=== PATIENT | female | born 1965 | race African-American/Black ===

== ENCOUNTER 2016-08-07 14:02 | Emergency (ER) | payer MEDICARE, OTHER ==
[2016-08-07 14:08] VITALS: TEMP 98.4; BMI 32.8
[2016-08-07] MEDS ORDERED: predniSONE 20 MG TABLET (UD) PO ONE (14:43)
--- NOTE | 2016-08-07 14:43 | PDOC ---
[id number] No Limitations - History of Present Illness Initial Comments: 08/07/16 15:32 The patient is a 51 year old female with significant past medical history of asthma, hypertension, hyperlipidemia, CVA, s/p valve replacement who presents to the emergency department with an asthma exacerbation for the last 2 days. The patient states that she usually takes Symbicort for her asthma, however due to insurance problems the patient was given a smaller dose than normal. The patient states that she has chest discomfort and shortness of breath. 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 Cintron, this morning because he usually refills her medications, however he referred her to the ED. The patient reports any associated cough, runny nose, fevers, or chills. She denies any nausea, vomiting , abdominal pain. The patient denies any recent travels or sick contacts. <Frances Louie - Last Filed: 08/07/16 15:32> <Naty Acevedo - Last Filed: 08/12/16 08:06> - General Chief Complaint: Respiratory Stated Complaint: DIFF BREATHING Time Seen by Provider: 08/07/16 14:40 Past History <Frances Louie - Last Filed: 08/07/16 15:32> - Past Medical History Anemia: Yes Asthma: Yes Cancer: No Cardiac Disorders: Yes CVA: Yes (2007) COPD: No CHF: No Dementia: No Diabetes: No GI Disorders: No Disorders: No HTN: Yes Hypercholesterolemia: Yes Liver Disease: No Seizures: No Thyroid Disease: No - Surgical History Abdominal Surgery: No Appendectomy: No Cardiac Surgery: Yes (VALVE REPLACEMENT) Cholecystectomy: No Lung Surgery: No Neurologic Surgery: No Orthopedic Surgery: No - Psycho/Social/Smoking Cessation Hx Suicidal Ideation: No Smoking History: Current every day smoker Have you smoked in the past 12 months: Yes Number of Cigarettes Smoked Daily: 3 Information on smoking cessation initiated: No 'Breaking Loose' booklet given: 12/16/14 Hx Alcohol Use: No Drug/Substance Use Hx: No Substance Use Type: None <Naty Acevedo - Last Filed: 08/12/16 08:06> - Past Medical History Allergies/Adverse Reactions: Allergies Allergy/AdvReac Type Severity Reaction Status Date / Time No Known Allergies Allergy Verified 08/07/16 14:08 Home Medications: Ambulatory Orders Albuterol Sulfate [Proair Hfa -] 1 - 2 inh PO HS 12/15/14 Amlodipine Besylate [Norvasc -] 5 mg PO PRN PRN 12/15/14 Mv,Ca,Fe,Min/FA/Guarana/Caff [One Daily Tablet] 1 tab PO DAILY 12/15/14 Oxycodone HCl/Acetaminophen [Percocet 5-325 mg Tablet] 1 tab PO Q6H PRN Pregabalin [Lyrica -] 100 mg PO DAILY 12/15/14 Rosuvastatin Calcium [Crestor] 10 mg PO DAILY 12/15/14 Aspirin/Dipyridamole [Aggrenox -] 1 combo PO BID #0 01/02/15 Omeprazole [Prilosec (RX)] 40 mg PO AM #0 capsule 01/02/15 Albuterol 0.083% Nebulizer Krystina [Ventolin 0.083% Nebulizer Soln -] 1 neb NEB Q6H #120 vial 08/07/16 Albuterol Sulfate Inhaler - [Ventolin HFA Inhaler -] 1 - 2 inh PO QID #1 inhaler 08/07/16 Budesonide/Formeterol Fumarate [SYMBICORT 160/4.5mcg -] 1 inh PO BID #1 cannister 08/07/16 Prednisone [Deltasone -] 10 mg PO ASDIR #1 tablet 08/07/16 Review of Systems - Review of Systems Able to Perform ROS?: Yes Comments:: 08/07/16 15:32 GENERAL/CONSTITUTIONAL: No fever or chills. No weakness. HEAD, EYES, EARS, NOSE AND THROAT: No change in vision. No ear pain or discharge. No sore throat. CARDIOVASCULAR: +Shortness of breath. No chest pain . RESPIRATORY: No cough, wheezing, or hemoptysis. GASTROINTESTINAL: No nausea, vomiting, diarrhea or constipation. GENITOURINARY: No dysuria, frequency, or change in urination. MUSCULOSKELETAL: No joint or muscle swelling or pain. No neck or back pain. SKIN: No rash NEUROLOGIC: No headache, vertigo, loss of consciousness, or change in strength/ sensation. ENDOCRINE: No increased thirst. No abnormal weight change. HEMATOLOGIC/LYMPHATIC: No anemia, easy bleeding, or history of blood clots. ALLERGIC/IMMUNOLOGIC: No hives or skin allergy. <Cook,Frances - Last Filed: 08/07/16 15:32> *Physical Exam - Vital Signs Last Vital Signs Temp Pulse Resp BP Pulse Ox 98.4 F 76 20 150/78 98 08/07/16 14:03 08/07/16 14:03 08/07/16 14:03 08/07/16 14:03 08/07/16 14:03 <Frances Louie - Last Filed: 08/07/16 15:32> - Vital Signs Last Vital Signs Temp Pulse Resp BP Pulse Ox 98.4 F 76 20 150/78 98 08/07/16 14:03 08/07/16 14:03 08/07/16 14:03 08/07/16 14:03 08/07/16 14:03 - Physical Exam Comments: GENERAL: Awake, alert, and fully oriented. +Tachypnea HEAD: No signs of trauma EYES: PERRLA, EOMI, sclera anicteric, conjunctiva clear ENT: Auricles normal inspection, hearing grossly normal, nares patent, oropharynx clear without exudates. Moist mucosa NECK: Normal ROM, supple, no lymphadenopathy, JVD, or masses LUNGS: Dec air entry B/L. +Diffuse exp wheezes with prolonged exp phase. Speaking 4 word sentences. HEART: Regular rate and rhythm, normal S1 and S2, no murmurs, rubs or gallops ABDOMEN: Soft, nontender, normoactive bowel sounds. No guarding, no rebound. No masses EXTREMITIES: Normal range of motion, no edema. No clubbing or cyanosis. No cords, erythema, or tenderness NEUROLOGICAL: Cranial nerves II through XII grossly intact. Normal speech, normal gait SKIN: Warm, Dry, normal turgor, no rashes or lesions noted. <Naty Acevedo - Last Filed: 08/12/16 08:06> ED Treatment Course - Medications Given in the ED: ED Medications Discontinued Medications Generic Name Dose Route Start Last Admin Trade Name Freq PRN Reason Stop Dose Admin Albuterol/Ipratropium 1 amp 08/07/16 14:45 08/07/16 15:15 Duoneb - NEB 08/07/16 15:31 1 amp Q15M CHANDLER Administration Prednisone 60 mg 08/07/16 14:43 08/07/16 14:55 Deltasone - PO 08/07/16 14:44 60 mg ONCE ONE Administration <Frances Louie - Last Filed: 08/07/16 15:32> Medical Decision Making - Medical Decision Making Symptoms likely due to having suboptimal dosing of symbicort. I started her on prednisone and nebs. Patient improved, stable for DC home. <Naty Acevedo - Last Filed: 08/12/16 08:06> *DC/Admit/Observation/Transfer - Attestations Scribe Attestion: 08/07/16 15:32 Documentation prepared by Frances Louie, acting as emergency medicine medical director for Naty Acevedo MD. <Frances Louie - Last Filed: 08/07/16 15:32> - Discharge Dispostion Admit: No <Naty Acevedo - Last Filed: 08/12/16 08:06> Diagnosis at time of Disposition: Asthma exacerbation - Discharge Dispostion Disposition: HOME Condition at time of disposition: Stable - Prescriptions Prescriptions: Prednisone [Deltasone -] 10 mg PO ASDIR #1 tablet Budesonide/Formeterol Fumarate [SYMBICORT 160/4.5mcg -] 1 inh PO BID #1 cannister Albuterol 0.083% Nebulizer Krystina [Ventolin 0.083% Nebulizer Soln -] 1 neb NEB Q6H #120 vial Albuterol Sulfate Inhaler - [Ventolin HFA Inhaler -] 1 - 2 inh PO QID #1 inhaler - Referrals Referrals: Percy Layne MD [Primary Care Provider] - - Patient Instructions Printed Discharge Instructions: DI for Asthma -- Adult
[2016-08-07] MEDS ORDERED: ALBUTEROL SO4 2.5/IPRATROPIUM 0.5 INH SOL 3 ML VIAL.NEB. NEB ONE ×2 (14:44→16:37)
[2016-08-07] MEDS ORDERED: predniSONE 20 MG TABLET (UD) ONE (14:45)
[2016-08-07] MEDS: ALBUTEROL SO4 2.5/IPRATROPIUM 0.5 INH SOL 3 ML VIAL.NEB. NEB SCH ×3 (14:55→15:35)
[2016-08-07 17:15] VITALS: BP 138/74; PULSE 80
== END 2016-08-07 17:13 | disposition home or self-care (01) ==
LOC: JER 14:02
PROC: 3E0F7GC Introduction of Other Therapeutic Substance into Respiratory Tract, Via Natural or Artificial Opening (ICD-10-PCS; principal; 2016-08-07)
DX: J45.901 Unspecified asthma with (acute) exacerbation (principal); I10 Essential (primary) hypertension; E78.5 Hyperlipidemia, unspecified; Z86.73 Personal history of transient ischemic attack (TIA), and cerebral infarction without residual deficits; Z95.2 Presence of prosthetic heart valve; D64.9 Anemia, unspecified; F17.210 Nicotine dependence, cigarettes, uncomplicated
CPT/HCPCS: 71020-TC; 94640; 99283-25

== ENCOUNTER 2016-11-23 21:31 | Inpatient (IN) | payer MEDICARE, OTHER ==
[2016-11-23 21:44] VITALS: BMI 32.6
--- NOTE | 2016-11-23 22:01 | PDOC ---
History of Present Illness - General History Source: Patient Exam Limitations: No Limitations - History of Present Illness Initial Comments: 11/23/16 23:37 Patient is a 51 year old female with a significant past medical history of asthma, hypertension, hyperlipidemia, CVA and heart valve replacement who presents to the ED with complaint of wheezing and SOB since 4 days ago. Patient states that her last she developed SOB and wheezing on Friday and used her treatments and her symptoms resolved on . Patient notes that her symptoms came back yesterday. She reports dry cough. She states that she was seen by her peer educator and had and ECHO on friday. She denies any fever or chills. She denies lower extremity swelling. She denies chest pain. <Diana Funez - Last Filed: 11/23/16 23:37> - General History Source: Patient Exam Limitations: No Limitations <Claudia Lazar - Last Filed: 11/25/16 07:43> - General Chief Complaint: Asthma Stated Complaint: DIFFICULTY BREATHING Time Seen by Provider: 11/23/16 21:56 Past History <Diana Funez - Last Filed: 11/23/16 23:37> - Past Medical History Anemia: Yes Asthma: Yes Cancer: No Cardiac Disorders: Yes CVA: Yes (2007) COPD: No CHF: No Dementia: No Diabetes: No GI Disorders: No Disorders: No HTN: Yes Hypercholesterolemia: Yes Liver Disease: No Seizures: No Thyroid Disease: No - Surgical History Abdominal Surgery: No Appendectomy: No Cardiac Surgery: Yes (VALVE REPLACEMENT) Cholecystectomy: No Lung Surgery: No Neurologic Surgery: No Orthopedic Surgery: No - Psycho/Social/Smoking Cessation Hx Suicidal Ideation: No Smoking History: Current every day smoker Have you smoked in the past 12 months: Yes Number of Cigarettes Smoked Daily: 5 Information on smoking cessation initiated: No 'Breaking Loose' booklet given: 12/16/14 Hx Alcohol Use: No Drug/Substance Use Hx: No Substance Use Type: None <Claudia Lazar - Last Filed: 11/25/16 07:43> - Past Medical History Allergies/Adverse Reactions: Allergies Allergy/AdvReac Type Severity Reaction Status Date / Time No Known Allergies Allergy Verified 11/23/16 21:38 Home Medications: Ambulatory Orders Albuterol Sulfate [Proair Hfa -] 1 - 2 inh PO HS 12/15/14 Amlodipine Besylate [Norvasc -] 5 mg PO PRN PRN 12/15/14 Mv,Ca,Fe,Min/FA/Guarana/Caff [One Daily Tablet] 1 tab PO DAILY 12/15/14 Oxycodone HCl/Acetaminophen [Percocet 5-325 mg Tablet] 1 tab PO Q6H PRN Pregabalin [Lyrica -] 100 mg PO DAILY 12/15/14 Rosuvastatin Calcium [Crestor] 10 mg PO DAILY 12/15/14 Aspirin/Dipyridamole [Aggrenox -] 1 combo PO BID #0 01/02/15 Albuterol 0.083% Nebulizer Krystina [Ventolin 0.083% Nebulizer Soln -] 1 neb NEB Q6H #120 vial 08/07/16 Albuterol Sulfate Inhaler - [Ventolin HFA Inhaler -] 1 - 2 inh PO QID #1 inhaler 08/07/16 Budesonide/Formeterol Fumarate [SYMBICORT 160/4.5mcg -] 1 inh PO BID #1 cannister 08/07/16 Prednisone [Deltasone -] 10 mg PO ASDIR #1 tablet 08/07/16 Review of Systems - Review of Systems Able to Perform ROS?: Yes Comments:: 11/23/16 23:37 GENERAL/CONSTITUTIONAL: No: fever, chills, weakness, loss of appetite. HEAD, EYES, EARS, NOSE AND THROAT: No: change in vision, ear pain, discharge, sore throat, throat swelling. CARDIOVASCULAR: No: chest pain, lightheadedness, palpitations, syncope RESPIRATORY: +cough, SOB, wheezing No: hemoptysis, stridor. GASTROINTESTINAL: No: nausea, vomiting, abdominal cramping, diarrhea, rectal bleeding, constipation. GENITOURINARY: No: dysuria, hematuria, frequency, urgency, flank pain. MUSCULOSKELETAL: No: back pain, neck pain, joint pain, muscle swelling or pain SKIN: No: lesions, pallor, rash or easy bruising. NEUROLOGIC: No: headache, vertigo, paresthesias, weakness ENDOCRINE: No: unexplained weight gain or loss HEMATOLOGIC/LYMPHATIC: No: anemia, easy bleeding, swelling nodes <Jimmie Funeza - Last Filed: 11/23/16 23:37> *Physical Exam - Vital Signs Last Vital Signs Temp Pulse Resp BP Pulse Ox 97.8 F 86 20 116/60 100 11/23/16 21:35 11/23/16 21:35 11/23/16 21:35 11/23/16 21:35 11/23/16 22:45 - Physical Exam Comments: 11/23/16 23:37 GENERAL: The patient is in no acute distress. HEAD: Normal with no signs of trauma. EYES: PERRLA, EOMI, sclera anicteric, conjunctiva clear. ENT: Ears normal, nares patent, oropharynx clear without exudates. Moist mucous membranes. NECK: Normal range of motion, supple without lymphadenopathy, JVD, or masses. LUNGS: +Wheezes throughout. Breath sounds equal, no crackles. HEART:Regular rate and rhythm, normal S1 and S2 without murmur, rub or gallop. ABDOMEN: Soft, nontender, normoactive bowel sounds. No guarding, no rebound. EXTREMITIES: Normal range of motion, no edema. No clubbing or cyanosis. No erythema, or tenderness. NEUROLOGICAL: Cranial nerves II through XII grossly intact. Normal speech. No focal neurological deficits. MUSCULOSKELETAL: Back nontender to palpation, no CVA tenderness SKIN: Warm, Dry, normal turgor, no rashes or lesions noted. <Diana Funez - Last Filed: 11/23/16 23:37> - Vital Signs Last Vital Signs Temp Pulse Resp BP Pulse Ox 97.8 F 86 20 116/60 93 L 11/23/16 21:35 11/23/16 21:35 11/23/16 21:35 11/23/16 21:35 11/23/16 21:35 <Claudia Lazar - Last Filed: 11/25/16 07:43> ED Treatment Course - Medications Given in the ED: ED Medications Discontinued Medications Generic Name Dose Route Start Last Admin Trade Name Freq PRN Reason Stop Dose Admin Albuterol Sulfate 1 amp 11/23/16 22:16 11/23/16 22:36 Ventolin 0.083% Nebulizer Soln - NEB 11/23/16 22:17 1 amp ONCE ONE Administration Albuterol/Ipratropium 1 amp 11/23/16 22:16 11/23/16 22:36 Duoneb - NEB 11/23/16 22:17 1 amp ONCE ONE Administration Methylprednisolone Sodium Succinate 125 mg 11/23/16 22:16 11/23/16 22:36 Solu-Medrol - IVPB 11/23/16 22:17 Not Given ONCE ONE Prednisone 60 mg 11/23/16 22:26 11/23/16 22:36 Deltasone - PO 11/23/16 22:27 60 mg ONCE ONE Administration <Diana Funez - Last Filed: 11/23/16 23:37> - LABORATORY CBC & Chemistry Diagram: 11/24/16 12:00 11/24/16 12:00 <Claudia Lazar - Last Filed: 11/25/16 07:43> Medical Decision Making - Medical Decision Making 11/23/16 23:38 Documentation prepared by GIU Cain, acting as medical records coder for Claudia Lazar MD. <Diana Funez - Last Filed: 11/23/16 23:37> - Medical Decision Making 11/23/16 22:00 A portion of this note was documented by scribe services under my direction. I have reviewed the details of the note, within reason, and agree with the documentation with the following case summary and management plan written by me. Nursing documentation reviewed and incorporated into medical decision making This is a 51 yo F with a history of HTN, HLD, DM, h/o CVA (with prior Left upper extremity hemiparesis, now improved), s/p CABG, h/o Asthma Pt history slightly confusing She states that 4 days ago, she developed shortness of breath She took her albuterol treatments but states that she took it 4 days ago and then the following day This improved her symptoms Pt states beginning yesterday, she noted chest tightness and wheezing She presents to the ER because her daughter thought she sounded like a freight train Pt is visualized in her room breathing with no difficulties When staff present, she breathes heavily On examination: Exp wheezing in all lung novak RRR Pt is tearful when approached with IV 11/23/16 22:27 Pt re assessed She is having an anxiety attack when the nurse approached her with the IV needle Pt shaking I have explained that I would like to assess her further, however if she is refusing blood tests, We can not force her Pt given prednisone 60mg po 11/23/16 22:55 CXR: possible right infiltrate vs. effusion Will have to do labs 11/24/16 00:53 Laboratory Tests 11/24/16 00:01 WBC 6.4 Hgb 12.7 Hct 39.5 Plt Count 155 11/24/16 01:21 Laboratory Tests 11/24/16 00:01 Sodium 140 Potassium 4.5 Chloride 106 Carbon Dioxide 22 BUN 12 Creatinine 0.9 Random Glucose 107 H Troponin I < 0.02 B-Natriuretic Peptide 224.53 H Will discharge to home Return to the ER for any new symptoms, Follow up with your pmd in 2-3 days 11/24/16 01:23 Clinical impression: bronchitis, early pneumonia, COPD exacerbation After discussion about being discharged, pt began to ?wheeze Will admit to Dr Miles <Claudia Lazar - Last Filed: 11/25/16 07:43> *DC/Admit/Observation/Transfer - Attestations Scribe Attestion: 11/23/16 23:38 Documentation prepared by GUI Cain, acting as medical records coder for Claudia Lazar MD. <Diana Funez - Last Filed: 11/23/16 23:37> - Discharge Dispostion Admit: Yes <Claudia Lazar - Last Filed: 11/25/16 07:43> Diagnosis at time of Disposition: COPD exacerbation Pneumonia Qualifiers: Pneumonia type: due to unspecified organism Laterality: right Lung location: middle lobe of lung Qualified Code(s): J18.1 - Lobar pneumonia, unspecified organism - Referrals - Patient Instructions
[2016-11-23] MEDS ORDERED: ALBUTEROL SO4 2.5/IPRATROPIUM 0.5 INH SOL 3 ML VIAL.NEB. NEB ONE (22:16)
[2016-11-23] MEDS ORDERED: ALBUTEROL SO4 0.083% IH SOL 2.5 MG/3 ML VIAL.NEB. NEB ONE ×2 (22:16→22:20)
[2016-11-23] MEDS ORDERED: methylPREDNISolone NA SUCC 125 MG/2 ML VIAL IVPB ONE (22:16)
[2016-11-23] MEDS ORDERED: methylPREDNISolone NA SUCC 125 MG/2 ML VIAL ONE (22:20)
[2016-11-23] MEDS ORDERED: predniSONE 20 MG TABLET (UD) PO ONE (22:26)
[2016-11-23] MEDS ORDERED: predniSONE 20 MG TABLET (UD) ONE (22:28)
[2016-11-23] MEDS ORDERED: AZITHROMYCIN IVPB 500 MG in DEXTROSE 5%-WATER - 250 ML IVPB ONE (23:58)
[2016-11-23] MEDS ORDERED: CEFTRIAXONE 1 GM in DEXTROSE 5%-WATER - 50 ML IVPB ONE (23:58)
[2016-11-24] MEDS ORDERED: AZITHROMYCIN IVPB 250 ML IVPB ONE (00:26)
[2016-11-24] MEDS ORDERED: CEFTRIAXONE 50 ML ONE (00:27)
[2016-11-24 00:29] LABS: BASOPHIL 1.1 % (0-2.0); EOSINOPHIL 1.1 % (0-4.5); MCHC 32.2 g/dl (32.0-36.0); MEAN CELL VOLUME 86.8 fl (80-96); MEAN PLT VOLUME 9.5 fl (7.5-11.1); NEUTROPHILS 56.6 % (42.8-82.8); PLATELET COUNT 155 K/MM3 (134-434); RDW 15.2 % (11.6-15.6); WHITE BLOOD COUNT 6.4 K/mm3 (4.0-10.0)
[2016-11-24 00:58] LABS: ALBUMIN 3.8 g/dl (3.4-5.0); ANION GAP 12 (8-16); BILIRUBIN,TOTAL 0.3 mg/dL (0.2-1.0); CALCIUM 8.7 mg/dL (8.5-10.1); CO2 22 mmol/L (21-32); CREATININE 0.9 mg/dL (0.55-1.02); GLUCOSE,RANDOM 107 mg/dL (74-106); SGPT/ALT 31 U/L (12-78); TOT PROT 7.8 g/dl (6.4-8.2)
[2016-11-24 01:00] LABS: ALK PHOS 83 U/L (45-117); TROPONIN I < 0.02 ng/ml (0.00-0.05)
[2016-11-24 01:01] LABS: SGOT/AST 26 U/L (15-37)
[2016-11-24] MEDS ORDERED: ALBUTEROL SO4 2.5/IPRATROPIUM 0.5 INH SOL 3 ML VIAL.NEB. NEB ONE ×2 (01:36→01:39)
[2016-11-24] MEDS ORDERED: OXYCODONE/APAP 5/325MG COMBO TABLET PO PRN (03:46)
[2016-11-24] MEDS ORDERED: ALBUTEROL SO4 2.5/IPRATROPIUM 0.5 INH SOL 3 ML VIAL.NEB. NEB PRN (03:49)
[2016-11-24] MEDS ORDERED: oxyCODONE HCL 5 MG TABLET PO PRN (04:04)
[2016-11-24] MEDS ORDERED: ACETAMINOPHEN 325 MG TABLET (FP) PO PRN (04:04)
[2016-11-24] MEDS ORDERED: PT OWN MED DRAWER 7, Y5N ONE ×2 (09:37→21:05)
[2016-11-24] MEDS: methylPREDNISolone NA SUCC 40 MG/1 ML VIAL IVPB SCH ×2 (09:47→17:35)
[2016-11-24] MEDS: HEPARIN NA (PORCINE) 5,000 UNITS/ML 1ML VIAL SQ SCH ×2 (09:47→22:45)
[2016-11-24] MEDS ORDERED: AZITHROMYCIN IVPB 250 MG in DEXTROSE 5%-WATER - 250 ML IVPB SCH (10:00)
[2016-11-24] MEDS ORDERED: BUDESONIDE/FORMETEROL FUMARATE 160/4.5 mcg INHALER IH SCH (10:00)
[2016-11-24] MEDS ORDERED: PREGABALIN 100 MG CAPSULE PO SCH (10:00)
[2016-11-24] MEDS ORDERED: CEFTRIAXONE 50 ML IVPB SCH (10:00)
--- NOTE | 2016-11-24 11:12 | CON.PULM ---
Consult Consult Specialty:: PULM/CCM Referred by:: CARSON Reason for Consultation:: SOB - History of Present Illness Chief Complaint: SOB History of Present Illness: 51 F, active, daily smoker, (?) asthma-likely COPD, hypertension, hyperlipidemia , CVA, and heart valve replacement. Admitted via the ER after she developed SOB and wheezing while smoking a cigarette. She does report some mild progressive symptoms of CARTER and wheezing since . No travel history or sick contacts. No hemoptysis. She does snore and does have a risk factors for OSAS. She reports some mild pedal edema over the past few days. 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 No: Previously Intubated, Pulmonary Embolus , Pulmonary Fibrosis ...LMP: 09/24/07 ...: No - Alcohol/Substance Use Hx Alcohol Use: No - Smoking History Smoking history: Current every day smoker Have you smoked in the past 12 months: Yes Aproximately how many cigarettes per day: 5 Home Medications - Allergies Allergies/Adverse Reactions: Allergies Allergy/AdvReac Type Severity Reaction Status Date / Time No Known Allergies Allergy Verified 11/23/16 21:38 - Home Medications Home Medications: Ambulatory Orders Albuterol Sulfate [Proair Hfa -] 1 - 2 inh PO HS 12/15/14 Amlodipine Besylate [Norvasc -] 5 mg PO PRN PRN 12/15/14 Mv,Ca,Fe,Min/FA/Guarana/Caff [One Daily Tablet] 1 tab PO DAILY 12/15/14 Oxycodone HCl/Acetaminophen [Percocet 5-325 mg Tablet] 1 tab PO Q6H PRN Pregabalin [Lyrica -] 100 mg PO DAILY 12/15/14 Rosuvastatin Calcium [Crestor] 10 mg PO DAILY 12/15/14 Aspirin/Dipyridamole [Aggrenox -] 1 combo PO BID #0 01/02/15 Albuterol 0.083% Nebulizer Krystina [Ventolin 0.083% Nebulizer Soln -] 1 neb NEB Q6H #120 vial 08/07/16 Albuterol Sulfate Inhaler - [Ventolin HFA Inhaler -] 1 - 2 inh PO QID #1 inhaler 08/07/16 Budesonide/Formeterol Fumarate [SYMBICORT 160/4.5mcg -] 1 inh PO BID #1 cannister 08/07/16 Prednisone [Deltasone -] 10 mg PO ASDIR #1 tablet 08/07/16 Review of Systems - Review of Systems Constitutional: reports: Malaise, Weakness. denies: Chills, Fever, Loss of Appetite, Night Sweats Eyes: reports: No Symptoms HENT: reports: No Symptoms Neck: reports: No Symptoms Cardiovascular: reports: Edema, Shortness of Breath. denies: Chest Pain, Palpitations Respiratory: reports: Cough, Snoring, SOB, SOB on Exertion, Wheezing. denies: Hemoptysis Gastrointestinal: reports: No Symptoms Genitourinary: reports: No Symptoms Breasts: reports: No Symptoms Reported Musculoskeletal: reports: No Symptoms Integumentary: reports: No Symptoms Neurological: reports: No Symptoms Endocrine: reports: No Symptoms Hematology/Lymphatic: reports: No Symptoms Psychiatric: reports: No Symptoms Physical Exam Vital Sings: Vital Signs Temperature 98.6 F 11/24/16 09:14 Pulse Rate 99 H 11/24/16 09:14 Respiratory Rate 19 11/24/16 09:14 Blood Pressure 119/50 11/24/16 09:14 O2 Sat by Pulse Oximetry (%) 96 11/24/16 04:30 Constitutional: Yes: No Distress, Obese Eyes: Yes: Conjunctiva Clear, EOM Intact HENT: Yes: Atraumatic, Pharyngeal Erythema Neck: Yes: Supple, Trachea Midline Cardiovascular: Yes: Regular Rate and Rhythm Respiratory: Yes: Cough, Diminished, On Nasal O2, Rhonchi, Wheezes. No: Accessory Muscle Use, Stridor, Tachypnea ...Inspection: Yes: WNL ...Clubbing: No Gastrointestinal: Yes: Normal Bowel Sounds, Soft Renal/: Yes: WNL Musculoskeletal: Yes: WNL Extremities: Yes: WNL Edema: Yes Edema: LLE: Trace, RLE: Trace Peripheral Pulses WNL: Yes Integumentary: Yes: WNL Neurological: Yes: WNL, Alert, Oriented ...Motor Strength: WNL Psychiatric: Yes: WNL, Alert, Oriented Imaging - Results Chest X-ray: Report Reviewed, Image Reviewed Problem List - Problems (1) COPD exacerbation Code(s): J44.1 - CHRONIC OBSTRUCTIVE PULMONARY DISEASE W (ACUTE) EXACERBATION (2) Asthma exacerbation Code(s): J45.901 - UNSPECIFIED ASTHMA WITH (ACUTE) EXACERBATION (3) Hypertension Code(s): I10 - ESSENTIAL (PRIMARY) HYPERTENSION (4) Hyperlipidemia Code(s): E78.5 - HYPERLIPIDEMIA, UNSPECIFIED (5) Obesity Code(s): E66.9 - OBESITY, UNSPECIFIED (6) Pulmonary vascular congestion Code(s): R09.89 - OTH SYMPTOMS AND SIGNS INVOLVING THE CIRC AND RESP SYSTEMS Assessment/Plan IV Medrol Trial of Lasix BD TX No smoking counseled PFTs once stable Monitor off ABX for now I have a high suspicion for Sleep Apnea -> needs formal workup after discharge VTE prophylaxis Will follow Thank you. Dr Teresa
[2016-11-24] MEDS ORDERED: FUROSEMIDE 40 MG/4 ML INJECTABLE VIAL IVPB ONE (11:16)
[2016-11-24] MEDS: ASPIRIN/DIPYRIDAMOLE 25 MG/200 MG CAPSULE (FP) PO SCH ×2 (11:53→21:25)
[2016-11-24] MEDS: BUDESONIDE/FORMETEROL FUMARATE 160/4.5 mcg INHALER IH SCH ×2 (11:54→21:26)
[2016-11-24 12:30] LABS: BASOPHIL 0.2 % (0-2.0); MCH 28.1 pg (25.7-33.7); MCHC 32.3 g/dl (32.0-36.0); MEAN CELL VOLUME 87.1 fl (80-96); MEAN PLT VOLUME 9.8 fl (7.5-11.1); NEUTROPHILS 83.1 % (42.8-82.8); PLATELET COUNT 152 K/MM3 (134-434); RDW 15.3 % (11.6-15.6); WHITE BLOOD COUNT 6.2 K/mm3 (4.0-10.0)
[2016-11-24 13:03] LABS: ALBUMIN 3.8 g/dl (3.4-5.0); ANION GAP 12 (8-16); CALCIUM 9.4 mg/dL (8.5-10.1); CO2 24 mmol/L (21-32); CREATININE 0.8 mg/dL (0.55-1.02); GLUCOSE,RANDOM 113 mg/dL (74-106); SGOT/AST 21 U/L (15-37); SGPT/ALT 28 U/L (12-78)
[2016-11-24 13:04] LABS: ALK PHOS 85 U/L (45-117); BILIRUBIN,TOTAL 0.5 mg/dL (0.2-1.0); TOT PROT 7.7 g/dl (6.4-8.2)
[2016-11-24] MEDS: PREGABALIN 50 MG CAPSULE PO SCH (13:41)
[2016-11-24] MEDS: ALBUTEROL SO4 0.083% IH SOL 2.5 MG/3 ML VIAL.NEB. NEB SCH ×2 (14:10→21:44)
--- NOTE | 2016-11-24 18:45 | HP ---
Admitting History and Physical - Admission Chief Complaint: Dyspnea History of Present Illness: Pt is a 51 y/o morbidly obese female w/ PMH significant for HTN, asthma HLD, CVA and valve replacement. Pt presented to the ER w/ a 4 day h/o wheezing, dyspnea and dry nonproductive cough. Pt states that at change of seasons she usually gets a flare of her asthma. Pt deneis any fever/chills/chest pain or palpitations. In the ER pt was afebrile w/ a normal WBC and cxr showed congestion w/ a BNP of >200. 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 No: Previously Intubated, Pulmonary Embolus , Pulmonary Fibrosis ...LMP: 09/24/07 ...: No - Past Surgical History Additional Past Surgical History: Valve replacement - Smoking History Smoking history: Current every day smoker Have you smoked in the past 12 months: Yes Aproximately how many cigarettes per day: 5 - Alcohol/Substance Use Hx Alcohol Use: No Home Medications - Allergies Allergies/Adverse Reactions: Allergies Allergy/AdvReac Type Severity Reaction Status Date / Time No Known Allergies Allergy Verified 11/23/16 21:38 - Home Medications Home Medications: Ambulatory Orders Albuterol Sulfate [Proair Hfa -] 1 - 2 inh PO HS 12/15/14 Amlodipine Besylate [Norvasc -] 5 mg PO PRN PRN 12/15/14 Mv,Ca,Fe,Min/FA/Guarana/Caff [One Daily Tablet] 1 tab PO DAILY 12/15/14 Oxycodone HCl/Acetaminophen [Percocet 5-325 mg Tablet] 1 tab PO Q6H PRN Pregabalin [Lyrica -] 100 mg PO DAILY 12/15/14 Rosuvastatin Calcium [Crestor] 10 mg PO DAILY 12/15/14 Aspirin/Dipyridamole [Aggrenox -] 1 combo PO BID #0 01/02/15 Albuterol 0.083% Nebulizer Krystina [Ventolin 0.083% Nebulizer Soln -] 1 neb NEB Q6H #120 vial 08/07/16 Albuterol Sulfate Inhaler - [Ventolin HFA Inhaler -] 1 - 2 inh PO QID #1 inhaler 08/07/16 Budesonide/Formeterol Fumarate [SYMBICORT 160/4.5mcg -] 1 inh PO BID #1 cannister 08/07/16 Prednisone [Deltasone -] 10 mg PO ASDIR #1 tablet 08/07/16 Family Disease History - Family Disease History Family History: Unremarkable Review of Systems - Review of Systems Constitutional: reports: Loss of Appetite, Weakness Eyes: reports: No Symptoms HENT: reports: No Symptoms Neck: reports: No Symptoms Cardiovascular: reports: Shortness of Breath Respiratory: reports: Cough, SOB, Wheezing Gastrointestinal: reports: No Symptoms Genitourinary: reports: No Symptoms Physical Examination Vital Signs: Vital Signs Temperature 98.6 F 11/24/16 14:37 Pulse Rate 94 H 11/24/16 14:37 Respiratory Rate 18 11/24/16 14:37 Blood Pressure 142/76 11/24/16 14:37 O2 Sat by Pulse Oximetry (%) 96 11/24/16 09:10 Constitutional: Yes: Well Nourished Eyes: Yes: WNL HENT: Yes: WNL Neck: Yes: Supple Cardiovascular: Yes: WNL, Regular Rate and Rhythm Respiratory: Yes: Wheezes Gastrointestinal: Yes: WNL, Normal Bowel Sounds, Soft, Abdomen, Obese Musculoskeletal: Yes: WNL Extremities: Yes: WNL Edema: No Neurological: Yes: WNL, Alert, Oriented ...Motor Strength: WNL Labs: CBC, BMP 11/24/16 12:00 11/24/16 12:00 Problem List - Problems (1) Dyspnea Assessment/Plan: Due to exacerbation asthma Pulmonary/cardio consult Cont iv solumedrol/nebulizers Will IV zithro/ceftriaxone Check echo Sleep study as outpt to r/o HOWARD Code(s): R06.00 - DYSPNEA, UNSPECIFIED (2) Hypertension Assessment/Plan: BP stable Cont norvasc Code(s): I10 - ESSENTIAL (PRIMARY) HYPERTENSION (3) CVA (cerebral vascular accident) Assessment/Plan: Cont aggrenox Code(s): I63.9 - CEREBRAL INFARCTION, UNSPECIFIED (4) Hyperlipidemia Assessment/Plan: Cont crestor Code(s): E78.5 - HYPERLIPIDEMIA, UNSPECIFIED (5) Obesity Code(s): E66.9 - OBESITY, UNSPECIFIED
[2016-11-24] MEDS: ROSUVASTATIN CA 10 MG TABLET (FP) PO SCH (21:25)
[2016-11-25] MEDS: methylPREDNISolone NA SUCC 40 MG/1 ML VIAL IVPB SCH ×3 (02:19→18:06)
[2016-11-25] MEDS: ALBUTEROL SO4 0.083% IH SOL 2.5 MG/3 ML VIAL.NEB. NEB SCH ×3 (06:49→22:00)
[2016-11-25] MEDS ORDERED: PT OWN MED DRAWER 7, Y5N ONE ×2 (10:25→18:35)
[2016-11-25] MEDS: ASPIRIN/DIPYRIDAMOLE 25 MG/200 MG CAPSULE (FP) PO SCH ×2 (10:28→21:11)
[2016-11-25] MEDS: HEPARIN NA (PORCINE) 5,000 UNITS/ML 1ML VIAL SQ SCH ×3 (10:29→21:11)
[2016-11-25] MEDS: PREGABALIN 50 MG CAPSULE PO SCH (10:30)
[2016-11-25] MEDS: amLODIPine BESYLATE 5 MG TABLET (FP) PO SCH (10:31)
[2016-11-25] MEDS: BUDESONIDE/FORMETEROL FUMARATE 160/4.5 mcg INHALER IH SCH ×2 (10:32→21:10)
--- NOTE | 2016-11-25 12:19 | CON.CARD ---
Consult Consult Specialty:: Cardiology Referred by:: Dr. Miles Reason for Consultation:: SOB - History of Present Illness Chief Complaint: SOB/wheezing History of Present Illness: 51 year old woman with a history of a bio-MVR for endocarditis, prior CVA, known moderate LV systolic dysfunction, Asthma/COPD, continued smoking, admitted with sob and wheezing. Pt. seen and examined today in [place]. she states that her wheezing started last friday and initially improved with home nebulizers but became progressively worse over the week as she continued to smoke. She was in the ER with a friend over the weekend and noted by staff to be loudly wheezing thus she was advised to stay for treatment. Today she states she is feeling much better. Denies chest pain. does report mild LLE edema that has resolved over weekend. no palpitations, pnd, orthopnea. 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 Cardio/Vascular: Yes: HTN, Hyperlipdemia, Other (bio MVR for endocarditis) Pulmonary: Yes: Asthma, Bronchitis, COPD ...LMP: 09/24/07 ...: No - Alcohol/Substance Use Hx Alcohol Use: No - Smoking History Smoking history: Current every day smoker Have you smoked in the past 12 months: Yes Aproximately how many cigarettes per day: 5 - Social History ADL: Independent History of Recent Travel: No Home Medications - Allergies Allergies/Adverse Reactions: Allergies Allergy/AdvReac Type Severity Reaction Status Date / Time No Known Allergies Allergy Verified 11/23/16 21:38 - Home Medications Home Medications: Ambulatory Orders Albuterol Sulfate [Proair Hfa -] 1 - 2 inh PO HS 12/15/14 Amlodipine Besylate [Norvasc -] 5 mg PO PRN PRN 12/15/14 Mv,Ca,Fe,Min/FA/Guarana/Caff [One Daily Tablet] 1 tab PO DAILY 12/15/14 Oxycodone HCl/Acetaminophen [Percocet 5-325 mg Tablet] 1 tab PO Q6H PRN Pregabalin [Lyrica -] 100 mg PO DAILY 12/15/14 Rosuvastatin Calcium [Crestor] 10 mg PO DAILY 12/15/14 Aspirin/Dipyridamole [Aggrenox -] 1 combo PO BID #0 01/02/15 Albuterol 0.083% Nebulizer Krystina [Ventolin 0.083% Nebulizer Soln -] 1 neb NEB Q6H #120 vial 08/07/16 Albuterol Sulfate Inhaler - [Ventolin HFA Inhaler -] 1 - 2 inh PO QID #1 inhaler 08/07/16 Budesonide/Formeterol Fumarate [SYMBICORT 160/4.5mcg -] 1 inh PO BID #1 cannister 08/07/16 Prednisone [Deltasone -] 10 mg PO ASDIR #1 tablet 08/07/16 Family Disease History - Family Disease History Family History: Denies Review of Systems - Review of Systems Constitutional: denies: No Symptoms, Chills, Diaphoresis, Fever, Lethargy, Loss of Appetite, Malaise, Night Sweats, Unintentional Wgt. Loss, Weakness, Other Eyes: denies: No Symptoms, Blind Spots, Blurred Vision, Double Vision, Eye Pain , Floaters, Photophobia, Recent Change in Vision, Other HENT: denies: No Symptoms, Difficult Swallowing, Ear Discharge, Ear Pain, Epistaxis, Gingival Bleeding, Hearing Loss, Mouth Swelling, Nasal Congestion, Ocular Prosthesis, Throat Pain, Toothache, Ringing in Ears, Other Neck: denies: No Symptoms, Decreased ROM, Lumps, Pain on Movement, Stiffness, Swollen Glands, Tenderness, Other Cardiovascular: reports: Edema. denies: No Symptoms, Chest Pain, Palpitations, Shortness of Breath, Other Respiratory: reports: Cough, Exercise Intolerance, SOB, SOB on Exertion, Wheezing. denies: No Symptoms, Hemoptysis, Orthopnea, PND, Snoring, Other Gastrointestinal: denies: No Symptoms, Abdominal Pain, Bloating, Constipation, Diarrhea, Dysphagia, Indigestion, Melena, Nausea, Rectal Bleeding, Vomiting, Vomiting Blood, Other Genitourinary: denies: No Symptoms, Burning, Discharge, Dysuria, Flank Pain, Frequency, Hematuria, Incontinence, Lesions, Menses, Pain, Testicular Mass, Testicular Pain, Testicular Swelling, Urgency, Vaginal Bleeding, Other Breasts: denies: No Symptoms Reported, See HPI, Breast Implants, Discharge from Nipple, Lumps, Pain, Skin Changes, Other Musculoskeletal: denies: No Symptoms, Back Pain, Crepitus, Decreased ROM, Extremity Pain, Joint Pain, Joint Swelling, Muscle Pain, Muscle Cramps, Muscle Weakness, Other Integumentary: denies: No Symptoms, Blister, Bruising, Change in Color, Eczema, Erythema, Incision, Lesions, Lump, Pallor, Pruritis, Rash, Wound, Other Neurological: denies: No Symptoms, Change in LOC, Change in Speech, Confusion, Dizziness, Headache, Incoordination, Numbness, Parasthesia, Pre-Existing Deficit , Seizure, Syncope, Tremors, Unsteady Gait, Weakness, Other Endocrine: denies: No Symptoms, Excessive Sweating, Flushing, Increased Hunger, Increased Thirst, Intolerance to Cold, Intolerance to Heat, Unexplained Weight Gain, Unexplained Weight Loss, Other Hematology/Lymphatic: denies: No Symptoms, Easily Bruised, Excessive Bleeding, Swollen Glands, Other Psychiatric: denies: No Symptoms, Altered Sleep Pattern, Anxiety, Depression, Hallucinations, Panic, Paranoia, Suicidal, Other - Risk Factors Known Risk Factors: Yes: Hypercholesterolemia, Hypertension, Smoking Vital Signs: Vital Signs Temperature 98.4 F 11/24/16 22:00 Pulse Rate 63 11/25/16 06:00 Respiratory Rate 18 11/25/16 06:00 Blood Pressure 124/73 11/25/16 06:00 O2 Sat by Pulse Oximetry (%) 98 11/24/16 21:00 Constitutional: Yes: Well Nourished, No Distress, Calm Eyes: Yes: WNL, Conjunctiva Clear, EOM Intact, PERRL HENT: Yes: WNL, Atraumatic, Normocephalic Neck: Yes: WNL, Supple, Trachea Midline Respiratory: Yes: Regular. No: Rales, Rhonchi, SOB, SOB on Exertion, Tachypnea , Wheezes Gastrointestinal: Yes: WNL, Normal Bowel Sounds, Soft. No: Distention, Tenderness Renal/: Yes: WNL Cardiovascular: Yes: Regular Rate and Rhythm. No: Bradycardia, Tachycardia, Pulse Irregular, Gallop, Varicosities JVD: No Carotid Bruit: No PMI: Non-Displaced Heart Sounds: Yes: S1, S2. No: Split S2, S3, S4, Clicks, Gallop, Rub, Bruit Murmur: No: Systolic Murmur, Diastolic Murmur Musculoskeletal: Yes: WNL Extremities: Yes: WNL Edema: No Peripheral Pulses WNL: Yes Peripheral Pulses: 2+ Left Doralis Pedis, 2+ Right Dorsalis Pedis Integumentary: Yes: WNL Neurological: Yes: WNL, Alert, Oriented, Cran Nerves II-XII Intact ...Motor Strength: WNL Psychiatric: Yes: WNL, Alert, Oriented - Other Data Labs, Other Data: CBC, BMP 11/24/16 12:00 11/24/16 12:00 ekg-not available for review by me today Echo: Pending, Report Reviewed Imaging - Results Chest X-ray: Report Reviewed, Image Reviewed EKG: Report Reviewed, Image Reviewed Other: Report Reviewed, Image Reviewed Assessment/Plan 51 year old woman with a history of a bio-MVR for endocarditis, prior CVA, known moderate LV systolic dysfunction, Asthma/COPD, continued smoking, admitted with sob and wheezing. SOB-likely primarily due to AE COPD in setting of continued smoking, possible mild volume overload -improved significantly since admission -does not appear volume overloaded on exam today -can hold Lasix for now -cont tx for AE COPD as per pulmonary -f/up echo today, echo done in office recently confirmed stable Mod LV systolic dysfunction and bio-MVR with mean gradient 10mmHg -smoking cessation essential -pt is acceptable for discharge planning from a cardiac standpoint, would plan for close outpatient follow up
--- NOTE | 2016-11-25 12:56 | PN ---
Progress Note (short form) - Note Progress Note: Ambulating the room. Still with CARTER and congested cough. No CP. Intake & Output 11/22/16 11/23/16 11/24/16 11/25/16 23:59 23:59 23:59 23:59 Intake Total 540 150 Balance 540 150 Weight 234 lb 248 lb Last Vital Signs Temp Pulse Resp BP Pulse Ox 98.3 F 78 18 128/71 98 11/25/16 10:00 11/25/16 10:00 11/25/16 10:00 11/25/16 10:00 11/24/16 21:00 Active Medications Acetaminophen (Tylenol -) 325 mg PO Q6H PRN PRN Reason: PAIN Albuterol Sulfate (Ventolin 0.083% Nebulizer Soln -) 1 amp NEB TIDR [facility] Last Admin: 11/25/16 06:49 Dose: 1 amp Albuterol/Ipratropium (Duoneb -) 1 amp NEB Q6H PRN PRN Reason: SHORTNESS OF BREATH Last Admin: 11/24/16 10:00 Dose: 1 amp Amlodipine Besylate (Norvasc -) 5 mg PO DAILY [facility] Last Admin: 11/25/16 10:31 Dose: 5 mg Budesonide/Formoterol Fumarate (Symbicort 160/4.5mcg -) 2 puff IH BID [facility] Last Admin: 11/25/16 10:32 Dose: 2 puff Dipyridamole/Aspirin (Aggrenox -) 1 combo PO BID [facility] Last Admin: 11/25/16 10:28 Dose: 1 combo Heparin Sodium (Porcine) (Heparin -) 5,000 unit SQ BID [facility] Last Admin: 11/25/16 10:39 Dose: Not Given Methylprednisolone Sodium Succinate (Solu-Medrol -) 40 mg IVPB Q8H-IV [facility] Last Admin: 11/25/16 10:31 Dose: 40 mg Oxycodone HCl (Roxicodone -) 5 mg PO Q6H PRN PRN Reason: PAIN Pregabalin (Lyrica -) 100 mg PO DAILY [facility] Last Admin: 11/25/16 10:30 Dose: 100 mg Rosuvastatin Calcium (Crestor -) 10 mg PO HS [facility] Last Admin: 11/24/16 21:25 Dose: 10 mg Constitutional: Yes: No Distress, Obese Eyes: Yes: Conjunctiva Clear, EOM Intact HENT: Yes: Atraumatic, Pharyngeal Erythema Neck: Yes: Supple, Trachea Midline Cardiovascular: Yes: Regular Rate and Rhythm Respiratory: Yes: Cough, Diminished, On Nasal O2, Rhonchi, Wheezes. No: Accessory Muscle Use, Stridor, Tachypnea ...Inspection: Yes: WNL ...Clubbing: No Gastrointestinal: Yes: Normal Bowel Sounds, Soft Renal/: Yes: WNL Musculoskeletal: Yes: WNL Extremities: Yes: WNL Edema: Yes Edema: LLE: Trace, RLE: Trace Peripheral Pulses WNL: Yes Integumentary: Yes: WNL Neurological: Yes: WNL, Alert, Oriented ...Motor Strength: WNL Psychiatric: Yes: WNL, Alert, Oriented Laboratory Results - last 24 hr 11/24/16 12:00 Sodium 141 Potassium 4.3 Chloride 105 Carbon Dioxide 24 Anion Gap 12 BUN 11 Creatinine 0.8 Creat Clearance w eGFR > 60 Random Glucose 113 H Calcium 9.4 Total Bilirubin 0.5 D AST 21 ALT 28 Alkaline Phosphatase 85 Total Protein 7.7 Albumin 3.8 Problem List - Problems (1) COPD exacerbation Code(s): J44.1 - CHRONIC OBSTRUCTIVE PULMONARY DISEASE W (ACUTE) EXACERBATION (2) Asthma exacerbation Code(s): J45.901 - UNSPECIFIED ASTHMA WITH (ACUTE) EXACERBATION (3) Hypertension Code(s): I10 - ESSENTIAL (PRIMARY) HYPERTENSION (4) Hyperlipidemia Code(s): E78.5 - HYPERLIPIDEMIA, UNSPECIFIED (5) Obesity Code(s): E66.9 - OBESITY, UNSPECIFIED (6) Pulmonary vascular congestion Code(s): R09.89 - OTH SYMPTOMS AND SIGNS INVOLVING THE CIRC AND RESP SYSTEMS Assessment/Plan IV Medrol same dose today BD TX No smoking counseled PFTs once stable Monitor off ABX for now VTE prophylaxis I have a high suspicion for Sleep Apnea -> needs formal workup after discharge Dr Teresa Problem List - Problems (1) COPD exacerbation Code(s): J44.1 - CHRONIC OBSTRUCTIVE PULMONARY DISEASE W (ACUTE) EXACERBATION (2) Asthma exacerbation Code(s): J45.901 - UNSPECIFIED ASTHMA WITH (ACUTE) EXACERBATION (3) Hypertension Code(s): I10 - ESSENTIAL (PRIMARY) HYPERTENSION (4) Hyperlipidemia Code(s): E78.5 - HYPERLIPIDEMIA, UNSPECIFIED (5) Obesity Code(s): E66.9 - OBESITY, UNSPECIFIED (6) Pulmonary vascular congestion Code(s): R09.89 - OTH SYMPTOMS AND SIGNS INVOLVING THE CIRC AND RESP SYSTEMS
[2016-11-25] MEDS: ROSUVASTATIN CA 10 MG TABLET (FP) PO SCH (21:11)
--- NOTE | 2016-11-25 21:56 | PN ---
Progress Note, Physician History of Present Illness: Pt states that she is only slightly better and is SOB on walking - Current Medication List Current Medications: Active Medications Acetaminophen (Tylenol -) 325 mg PO Q6H PRN PRN Reason: PAIN Albuterol Sulfate (Ventolin 0.083% Nebulizer Soln -) 1 amp NEB TIDR [facility] Last Admin: 11/25/16 13:45 Dose: 1 amp Albuterol/Ipratropium (Duoneb -) 1 amp NEB Q6H PRN PRN Reason: SHORTNESS OF BREATH Last Admin: 11/24/16 10:00 Dose: 1 amp Amlodipine Besylate (Norvasc -) 5 mg PO DAILY [facility] Last Admin: 11/25/16 10:31 Dose: 5 mg Budesonide/Formoterol Fumarate (Symbicort 160/4.5mcg -) 2 puff IH BID [facility] Last Admin: 11/25/16 21:10 Dose: 2 puff Dipyridamole/Aspirin (Aggrenox -) 1 combo PO BID [facility] Last Admin: 11/25/16 21:11 Dose: 1 combo Heparin Sodium (Porcine) (Heparin -) 5,000 unit SQ BID [facility] Last Admin: 11/25/16 21:11 Dose: Not Given Methylprednisolone Sodium Succinate (Solu-Medrol -) 40 mg IVPB Q8H-IV [facility] Last Admin: 11/25/16 18:06 Dose: 40 mg Oxycodone HCl (Roxicodone -) 5 mg PO Q6H PRN PRN Reason: PAIN Pregabalin (Lyrica -) 100 mg PO DAILY [facility] Last Admin: 11/25/16 10:30 Dose: 100 mg Rosuvastatin Calcium (Crestor -) 10 mg PO HS [facility] Last Admin: 11/25/16 21:11 Dose: 10 mg - Objective Vital Signs: Vital Signs Temperature 97.8 F 11/25/16 21:03 Pulse Rate 99 H 11/25/16 21:03 Respiratory Rate 18 11/25/16 21:03 Blood Pressure 139/75 11/25/16 21:03 O2 Sat by Pulse Oximetry (%) 94 L 11/25/16 21:00 Constitutional: Yes: Well Nourished Neck: Yes: Supple Cardiovascular: Yes: WNL, Regular Rate and Rhythm Respiratory: Yes: Wheezes Gastrointestinal: Yes: WNL, Normal Bowel Sounds, Soft Labs: CBC, BMP 11/24/16 12:00 11/24/16 12:00 Problem List - Problems (1) Dyspnea Assessment/Plan: Due to exacerbation asthma Cont iv solumedrol/nebulizers Sleep study as outpt to r/o HOWARD Code(s): R06.00 - DYSPNEA, UNSPECIFIED (2) CHF (congestive heart failure) Assessment/Plan: Await echo As per cardio Code(s): I50.9 - HEART FAILURE, UNSPECIFIED (3) Hypertension Assessment/Plan: BP stable Cont norvasc Code(s): I10 - ESSENTIAL (PRIMARY) HYPERTENSION (4) CVA (cerebral vascular accident) Assessment/Plan: Cont aggrenox Code(s): I63.9 - CEREBRAL INFARCTION, UNSPECIFIED (5) Hyperlipidemia Assessment/Plan: Cont crestor Code(s): E78.5 - HYPERLIPIDEMIA, UNSPECIFIED (6) Obesity Code(s): E66.9 - OBESITY, UNSPECIFIED
[2016-11-26] MEDS: methylPREDNISolone NA SUCC 40 MG/1 ML VIAL IVPB SCH ×3 (01:19→21:07)
[2016-11-26] MEDS: ALBUTEROL SO4 0.083% IH SOL 2.5 MG/3 ML VIAL.NEB. NEB SCH ×3 (06:16→21:02)
--- NOTE | 2016-11-26 10:00 | PN ---
Progress Note, Physician Chief Complaint: walking halls no acute distress - Current Medication List Current Medications: Active Medications Acetaminophen (Tylenol -) 325 mg PO Q6H PRN PRN Reason: PAIN Albuterol Sulfate (Ventolin 0.083% Nebulizer Soln -) 1 amp NEB TIDR [facility] Last Admin: 11/26/16 06:16 Dose: 1 amp Albuterol/Ipratropium (Duoneb -) 1 amp NEB Q6H PRN PRN Reason: SHORTNESS OF BREATH Last Admin: 11/24/16 10:00 Dose: 1 amp Amlodipine Besylate (Norvasc -) 5 mg PO DAILY [facility] Last Admin: 11/25/16 10:31 Dose: 5 mg Budesonide/Formoterol Fumarate (Symbicort 160/4.5mcg -) 2 puff IH BID [facility] Last Admin: 11/25/16 21:10 Dose: 2 puff Dipyridamole/Aspirin (Aggrenox -) 1 combo PO BID [facility] Last Admin: 11/25/16 21:11 Dose: 1 combo Heparin Sodium (Porcine) (Heparin -) 5,000 unit SQ BID [facility] Last Admin: 11/25/16 21:11 Dose: Not Given Methylprednisolone Sodium Succinate (Solu-Medrol -) 40 mg IVPB Q8H-IV [facility] Last Admin: 11/26/16 01:19 Dose: 40 mg Oxycodone HCl (Roxicodone -) 5 mg PO Q6H PRN PRN Reason: PAIN Pregabalin (Lyrica -) 100 mg PO DAILY [facility] Last Admin: 11/25/16 10:30 Dose: 100 mg Rosuvastatin Calcium (Crestor -) 10 mg PO HS [facility] Last Admin: 11/25/16 21:11 Dose: 10 mg - Objective Vital Signs: Vital Signs Temperature 98.1 F 11/26/16 05:24 Pulse Rate 64 11/26/16 05:24 Respiratory Rate 18 11/26/16 05:24 Blood Pressure 135/80 11/26/16 05:24 O2 Sat by Pulse Oximetry (%) 94 L 11/25/16 21:00 Constitutional: Yes: No Distress Cardiovascular: Yes: Regular Rate and Rhythm Respiratory: Yes: Other (decreased breath sounds bilaterally, no active wheezing.) Gastrointestinal: Yes: Soft Edema: No Neurological: Yes: Alert, Oriented Labs: CBC, BMP 11/24/16 12:00 11/24/16 12:00 Laboratory Tests 11/24/16 11/24/16 12:00 12:00 WBC 6.2 Hgb 12.9 Hct 40.1 Plt Count 152 Sodium 141 Potassium 4.3 BUN 11 Creatinine 0.8 Assessment/Plan Assessment/Plan 51 year old woman with a history of a bio-MVR for endocarditis, prior CVA, known moderate LV systolic dysfunction, Asthma/COPD, continued smoking, admitted with sob and wheezing, acute exacerbation of COPD. SOB-likely primarily due to AE COPD in setting of continued smoking -does not appear volume overloaded on exam, has clinically improved with treatment of COPD -cont tx for AE COPD as per pulmonary -repeat echo with normalized EF since started on Rx for LV dysfx w/Losartan. Was not on beta ozzy due to COPD, wheezing and history of Wenkebach with baseline first degree AV block -smoking cessation emphasized.
[2016-11-26] MEDS ORDERED: PT OWN MED DRAWER 7, Y5N ONE (10:14)
[2016-11-26] MEDS: PREGABALIN 50 MG CAPSULE PO SCH (10:50)
[2016-11-26] MEDS: ASPIRIN/DIPYRIDAMOLE 25 MG/200 MG CAPSULE (FP) PO SCH ×2 (10:50→21:09)
[2016-11-26] MEDS: HEPARIN NA (PORCINE) 5,000 UNITS/ML 1ML VIAL SQ SCH ×2 (10:50→21:07)
[2016-11-26] MEDS: amLODIPine BESYLATE 5 MG TABLET (FP) PO SCH (10:50)
--- NOTE | 2016-11-26 12:14 | PN ---
Progress Note (short form) - Note Progress Note: Ambulating the room. CARTER and congested cough better today. No CP. Intake & Output 11/23/16 11/24/16 11/25/16 11/26/16 23:59 23:59 23:59 23:59 Intake Total 540 450 50 Balance 540 450 50 Weight 234 lb 248 lb Last Vital Signs Temp Pulse Resp BP Pulse Ox 98.1 F 64 18 135/80 94 L 11/26/16 05:24 11/26/16 05:24 11/26/16 05:24 11/26/16 05:24 11/25/16 21:00 Active Medications Acetaminophen (Tylenol -) 325 mg PO Q6H PRN PRN Reason: PAIN Albuterol Sulfate (Ventolin 0.083% Nebulizer Soln -) 1 amp NEB TIDR [facility] Last Admin: 11/26/16 06:16 Dose: 1 amp Albuterol/Ipratropium (Duoneb -) 1 amp NEB Q6H PRN PRN Reason: SHORTNESS OF BREATH Last Admin: 11/24/16 10:00 Dose: 1 amp Amlodipine Besylate (Norvasc -) 5 mg PO DAILY [facility] Last Admin: 11/25/16 10:31 Dose: 5 mg Budesonide/Formoterol Fumarate (Symbicort 160/4.5mcg -) 2 puff IH BID [facility] Last Admin: 11/25/16 21:10 Dose: 2 puff Dipyridamole/Aspirin (Aggrenox -) 1 combo PO BID [facility] Last Admin: 11/25/16 21:11 Dose: 1 combo Heparin Sodium (Porcine) (Heparin -) 5,000 unit SQ BID [facility] Last Admin: 11/25/16 21:11 Dose: Not Given Methylprednisolone Sodium Succinate (Solu-Medrol -) 40 mg IVPB Q8H-IV [facility] Last Admin: 11/26/16 01:19 Dose: 40 mg Oxycodone HCl (Roxicodone -) 5 mg PO Q6H PRN PRN Reason: PAIN Pregabalin (Lyrica -) 100 mg PO DAILY [facility] Last Admin: 11/25/16 10:30 Dose: 100 mg Rosuvastatin Calcium (Crestor -) 10 mg PO HS [facility] Last Admin: 11/25/16 21:11 Dose: 10 mg Constitutional: Yes: No Distress, Obese Eyes: Yes: Conjunctiva Clear, EOM Intact HENT: Yes: Atraumatic, Pharyngeal Erythema Neck: Yes: Supple, Trachea Midline Cardiovascular: Yes: Regular Rate and Rhythm Respiratory: Yes: Cough, Diminished, On Nasal O2, Rhonchi, Less Wheezes. No: Accessory Muscle Use, Stridor, Tachypnea ...Inspection: Yes: WNL ...Clubbing: No Gastrointestinal: Yes: Normal Bowel Sounds, Soft Renal/: Yes: WNL Musculoskeletal: Yes: WNL Extremities: Yes: WNL Edema: Yes Edema: LLE: Trace, RLE: Trace Peripheral Pulses WNL: Yes Integumentary: Yes: WNL Neurological: Yes: WNL, Alert, Oriented ...Motor Strength: WNL Psychiatric: Yes: WNL, Alert, Oriented Problem List - Problems (1) COPD exacerbation Code(s): J44.1 - CHRONIC OBSTRUCTIVE PULMONARY DISEASE W (ACUTE) EXACERBATION (2) Asthma exacerbation Code(s): J45.901 - UNSPECIFIED ASTHMA WITH (ACUTE) EXACERBATION (3) Hypertension Code(s): I10 - ESSENTIAL (PRIMARY) HYPERTENSION (4) Hyperlipidemia Code(s): E78.5 - HYPERLIPIDEMIA, UNSPECIFIED (5) Obesity Code(s): E66.9 - OBESITY, UNSPECIFIED (6) Pulmonary vascular congestion Code(s): R09.89 - OTH SYMPTOMS AND SIGNS INVOLVING THE CIRC AND RESP SYSTEMS Assessment/Plan IV Medrol taper BD TX No smoking counseled PFTs once stable Monitor off ABX VTE prophylaxis I have a high suspicion for Sleep Apnea -> needs formal workup after discharge If continued improvement -> potential change to oral therapy and D/C home Dr Teresa Problem List - Problems (1) COPD exacerbation Code(s): J44.1 - CHRONIC OBSTRUCTIVE PULMONARY DISEASE W (ACUTE) EXACERBATION (2) Asthma exacerbation Code(s): J45.901 - UNSPECIFIED ASTHMA WITH (ACUTE) EXACERBATION (3) Hypertension Code(s): I10 - ESSENTIAL (PRIMARY) HYPERTENSION (4) Hyperlipidemia Code(s): E78.5 - HYPERLIPIDEMIA, UNSPECIFIED (5) Obesity Code(s): E66.9 - OBESITY, UNSPECIFIED (6) Pulmonary vascular congestion Code(s): R09.89 - OTH SYMPTOMS AND SIGNS INVOLVING THE CIRC AND RESP SYSTEMS
[2016-11-26] MEDS: BUDESONIDE/FORMETEROL FUMARATE 160/4.5 mcg INHALER IH SCH ×2 (13:23→21:10)
[2016-11-26] MEDS: ROSUVASTATIN CA 10 MG TABLET (FP) PO SCH (21:09)
--- NOTE | 2016-11-26 21:42 | PN ---
Progress Note, Physician History of Present Illness: No new complaints - Current Medication List Current Medications: Active Medications Acetaminophen (Tylenol -) 325 mg PO Q6H PRN PRN Reason: PAIN Albuterol Sulfate (Ventolin 0.083% Nebulizer Soln -) 1 amp NEB TIDR [facility] Last Admin: 11/26/16 21:02 Dose: 1 amp Albuterol/Ipratropium (Duoneb -) 1 amp NEB Q6H PRN PRN Reason: SHORTNESS OF BREATH Last Admin: 11/24/16 10:00 Dose: 1 amp Amlodipine Besylate (Norvasc -) 5 mg PO DAILY [facility] Last Admin: 11/26/16 10:50 Dose: 5 mg Budesonide/Formoterol Fumarate (Symbicort 160/4.5mcg -) 2 puff IH BID [facility] Last Admin: 11/26/16 21:10 Dose: 2 puff Dipyridamole/Aspirin (Aggrenox -) 1 combo PO BID [facility] Last Admin: 11/26/16 21:09 Dose: 1 combo Heparin Sodium (Porcine) (Heparin -) 5,000 unit SQ BID [facility] Last Admin: 11/26/16 21:07 Dose: Not Given Methylprednisolone Sodium Succinate (Solu-Medrol -) 40 mg IVPB BID [facility] Last Admin: 11/26/16 21:07 Dose: 40 mg Oxycodone HCl (Roxicodone -) 5 mg PO Q6H PRN PRN Reason: PAIN Pregabalin (Lyrica -) 100 mg PO DAILY [facility] Last Admin: 11/26/16 10:50 Dose: 100 mg Rosuvastatin Calcium (Crestor -) 10 mg PO HS [facility] Last Admin: 11/26/16 21:09 Dose: 10 mg - Objective Vital Signs: Vital Signs Temperature 98.4 F 11/26/16 20:47 Pulse Rate 68 11/26/16 20:47 Respiratory Rate 20 11/26/16 20:52 Blood Pressure 134/97 11/26/16 20:47 O2 Sat by Pulse Oximetry (%) 97 11/26/16 20:52 Cardiovascular: Yes: WNL, Regular Rate and Rhythm Respiratory: Yes: WNL, Regular, CTA Bilaterally Gastrointestinal: Yes: WNL, Normal Bowel Sounds, Soft Labs: CBC, BMP 11/24/16 12:00 11/24/16 12:00 Problem List - Problems (1) Dyspnea Code(s): R06.00 - DYSPNEA, UNSPECIFIED (2) CHF (congestive heart failure) Code(s): I50.9 - HEART FAILURE, UNSPECIFIED (3) Hypertension Code(s): I10 - ESSENTIAL (PRIMARY) HYPERTENSION (4) CVA (cerebral vascular accident) Code(s): I63.9 - CEREBRAL INFARCTION, UNSPECIFIED (5) Hyperlipidemia Code(s): E78.5 - HYPERLIPIDEMIA, UNSPECIFIED (6) Obesity Code(s): E66.9 - OBESITY, UNSPECIFIED
[2016-11-27] MEDS: ALBUTEROL SO4 0.083% IH SOL 2.5 MG/3 ML VIAL.NEB. NEB SCH ×3 (06:45→22:15)
[2016-11-27] MEDS ORDERED: PT OWN MED DRAWER 7, Y5N ONE (09:08)
[2016-11-27] MEDS: PREGABALIN 50 MG CAPSULE PO SCH (09:18)
[2016-11-27] MEDS: BUDESONIDE/FORMETEROL FUMARATE 160/4.5 mcg INHALER IH SCH ×2 (09:18→21:47)
[2016-11-27] MEDS: ASPIRIN/DIPYRIDAMOLE 25 MG/200 MG CAPSULE (FP) PO SCH ×2 (09:18→21:46)
[2016-11-27] MEDS: amLODIPine BESYLATE 5 MG TABLET (FP) PO SCH (09:19)
[2016-11-27] MEDS: methylPREDNISolone NA SUCC 40 MG/1 ML VIAL IVPB SCH ×2 (09:19→21:46)
[2016-11-27] MEDS: HEPARIN NA (PORCINE) 5,000 UNITS/ML 1ML VIAL SQ SCH ×2 (10:00→21:46)
--- NOTE | 2016-11-27 12:45 | PN ---
Progress Note, Physician History of Present Illness: pulmonary alert,less cough,still mildly congested,+ carl - Current Medication List Current Medications: Active Medications Acetaminophen (Tylenol -) 325 mg PO Q6H PRN PRN Reason: PAIN Albuterol Sulfate (Ventolin 0.083% Nebulizer Soln -) 1 amp NEB TIDR [facility] Last Admin: 11/27/16 06:45 Dose: 1 amp Albuterol/Ipratropium (Duoneb -) 1 amp NEB Q6H PRN PRN Reason: SHORTNESS OF BREATH Last Admin: 11/24/16 10:00 Dose: 1 amp Amlodipine Besylate (Norvasc -) 5 mg PO DAILY [facility] Last Admin: 11/27/16 09:19 Dose: 5 mg Budesonide/Formoterol Fumarate (Symbicort 160/4.5mcg -) 2 puff IH BID [facility] Last Admin: 11/27/16 09:18 Dose: 2 puff Dipyridamole/Aspirin (Aggrenox -) 1 combo PO BID [facility] Last Admin: 11/27/16 09:18 Dose: 1 combo Heparin Sodium (Porcine) (Heparin -) 5,000 unit SQ BID [facility] Last Admin: 11/26/16 21:07 Dose: Not Given Methylprednisolone Sodium Succinate (Solu-Medrol -) 40 mg IVPB BID [facility] Last Admin: 11/27/16 09:19 Dose: 40 mg Pregabalin (Lyrica -) 100 mg PO DAILY [facility] Last Admin: 11/27/16 09:18 Dose: 100 mg Rosuvastatin Calcium (Crestor -) 10 mg PO HS [facility] Last Admin: 11/26/16 21:09 Dose: 10 mg - Objective Vital Signs: Vital Signs Temperature 98 F 11/27/16 09:17 Pulse Rate 82 11/27/16 09:17 Respiratory Rate 20 11/27/16 09:17 Blood Pressure 127/74 11/27/16 09:17 O2 Sat by Pulse Oximetry (%) 97 11/26/16 20:52 Constitutional: Yes: Well Nourished, Calm Eyes: Yes: WNL HENT: Yes: WNL Neck: Yes: WNL Cardiovascular: Yes: Regular Rate and Rhythm, S1, S2 Respiratory: Yes: Wheezes (scattered lulú wheezes) Gastrointestinal: Yes: Normal Bowel Sounds, Soft Extremities: Yes: WNL Edema: Yes Edema: LLE: Trace, RLE: Trace Labs: CBC, BMP Assessment/Plan Problem List - Problems (1) COPD exacerbation Code(s): J44.1 - CHRONIC OBSTRUCTIVE PULMONARY DISEASE W (ACUTE) EXACERBATION (2) Asthma exacerbation Code(s): J45.901 - UNSPECIFIED ASTHMA WITH (ACUTE) EXACERBATION (3) Hypertension Code(s): I10 - ESSENTIAL (PRIMARY) HYPERTENSION (4) Hyperlipidemia Code(s): E78.5 - HYPERLIPIDEMIA, UNSPECIFIED (5) Obesity Code(s): E66.9 - OBESITY, UNSPECIFIED (6) Pulmonary vascular congestion Code(s): R09.89 - OTH SYMPTOMS AND SIGNS INVOLVING THE CIRC AND RESP SYSTEMS Assessment/Plan IV Medrol ,Prednisone in am BD [place] No smoking counseled PFTs outpatient Monitor off ABX VTE prophylaxis sleep studies outpatient DR BARAJAS Problem List - Problems (1) COPD exacerbation Code(s): J44.1 - CHRONIC OBSTRUCTIVE PULMONARY DISEASE W (ACUTE) EXACERBATION (2) Asthma exacerbation Code(s): J45.901 - UNSPECIFIED ASTHMA WITH (ACUTE) EXACERBATION (3) Hypertension Code(s): I10 - ESSENTIAL (PRIMARY) HYPERTENSION (4) Hyperlipidemia Code(s): E78.5 - HYPERLIPIDEMIA, UNSPECIFIED (5) Obesity
--- NOTE | 2016-11-27 19:57 | PN ---
Progress Note, Physician History of Present Illness: No new complaints - Current Medication List Current Medications: Active Medications Acetaminophen (Tylenol -) 325 mg PO Q6H PRN PRN Reason: PAIN Albuterol Sulfate (Ventolin 0.083% Nebulizer Soln -) 1 amp NEB TIDR [facility] Last Admin: 11/27/16 13:44 Dose: 1 amp Albuterol/Ipratropium (Duoneb -) 1 amp NEB Q6H PRN PRN Reason: SHORTNESS OF BREATH Last Admin: 11/24/16 10:00 Dose: 1 amp Amlodipine Besylate (Norvasc -) 5 mg PO DAILY [facility] Last Admin: 11/27/16 09:19 Dose: 5 mg Budesonide/Formoterol Fumarate (Symbicort 160/4.5mcg -) 2 puff IH BID [facility] Last Admin: 11/27/16 09:18 Dose: 2 puff Dipyridamole/Aspirin (Aggrenox -) 1 combo PO BID [facility] Last Admin: 11/27/16 09:18 Dose: 1 combo Heparin Sodium (Porcine) (Heparin -) 5,000 unit SQ BID [facility] Last Admin: 11/27/16 10:00 Dose: Not Given Methylprednisolone Sodium Succinate (Solu-Medrol -) 40 mg IVPB BID [facility] Last Admin: 11/27/16 09:19 Dose: 40 mg Pregabalin (Lyrica -) 100 mg PO DAILY [facility] Last Admin: 11/27/16 09:18 Dose: 100 mg Rosuvastatin Calcium (Crestor -) 10 mg PO HS [facility] Last Admin: 11/26/16 21:09 Dose: 10 mg - Objective Vital Signs: Vital Signs Temperature 97.9 F 11/27/16 14:35 Pulse Rate 79 11/27/16 15:18 Respiratory Rate 20 11/27/16 14:35 Blood Pressure 123/57 11/27/16 14:35 O2 Sat by Pulse Oximetry (%) 97 11/27/16 15:18 Constitutional: Yes: Well Nourished Neck: Yes: Supple Cardiovascular: Yes: WNL, Regular Rate and Rhythm Respiratory: Yes: Other (Decreased bs b/l) Gastrointestinal: Yes: WNL, Normal Bowel Sounds, Soft, Abdomen, Obese Labs: CBC, BMP 11/24/16 12:00 11/24/16 12:00 Problem List - Problems (1) Dyspnea Assessment/Plan: Probable dc planning for am Due to exacerbation asthma Cont iv solumedrol being tapered Cont nebulizers Sleep study as outpt to r/o HOWARD Code(s): R06.00 - DYSPNEA, UNSPECIFIED (2) CHF (congestive heart failure) Assessment/Plan: Echo noted As per cardio Code(s): I50.9 - HEART FAILURE, UNSPECIFIED (3) Hypertension Assessment/Plan: BP stable Cont norvasc Code(s): I10 - ESSENTIAL (PRIMARY) HYPERTENSION (4) CVA (cerebral vascular accident) Code(s): I63.9 - CEREBRAL INFARCTION, UNSPECIFIED (5) Hyperlipidemia Code(s): E78.5 - HYPERLIPIDEMIA, UNSPECIFIED (6) Obesity Code(s): E66.9 - OBESITY, UNSPECIFIED
[2016-11-27] MEDS: ROSUVASTATIN CA 10 MG TABLET (FP) PO SCH (21:46)
[2016-11-28] MEDS: ALBUTEROL SO4 0.083% IH SOL 2.5 MG/3 ML VIAL.NEB. NEB SCH ×2 (06:10→14:08)
[2016-11-28 09:36] VITALS: TEMP 98.4
[2016-11-28] MEDS ORDERED: PT OWN MED DRAWER 7, Y5N ONE (09:40)
--- NOTE | 2016-11-28 09:42 | PN ---
Progress Note (short form) - Note Progress Note: Overall feels better, still with some cough and "tight" feeling. Cough is improving. No CP. CARTER is better. Intake & Output 11/25/16 11/26/16 11/27/16 11/28/16 23:59 23:59 23:59 23:59 Intake Total 450 500 220 Balance 450 500 220 Last Vital Signs Temp Pulse Resp BP Pulse Ox 98.4 F 69 18 103/56 96 11/28/16 09:00 11/28/16 09:00 11/28/16 09:00 11/28/16 09:00 11/27/16 20:52 Active Medications Acetaminophen (Tylenol -) 325 mg PO Q6H PRN PRN Reason: PAIN Albuterol Sulfate (Ventolin 0.083% Nebulizer Soln -) 1 amp NEB TIDR [facility] Last Admin: 11/28/16 06:10 Dose: 1 amp Albuterol/Ipratropium (Duoneb -) 1 amp NEB Q6H PRN PRN Reason: SHORTNESS OF BREATH Last Admin: 11/24/16 10:00 Dose: 1 amp Amlodipine Besylate (Norvasc -) 5 mg PO DAILY [facility] Last Admin: 11/27/16 09:19 Dose: 5 mg Budesonide/Formoterol Fumarate (Symbicort 160/4.5mcg -) 2 puff IH BID [facility] Last Admin: 11/27/16 21:47 Dose: 2 puff Dipyridamole/Aspirin (Aggrenox -) 1 combo PO BID [facility] Last Admin: 11/27/16 21:46 Dose: 1 combo Heparin Sodium (Porcine) (Heparin -) 5,000 unit SQ BID [facility] Last Admin: 11/27/16 21:46 Dose: Not Given Methylprednisolone Sodium Succinate (Solu-Medrol -) 40 mg IVPB BID [facility] Last Admin: 11/27/16 21:46 Dose: 40 mg Pregabalin (Lyrica -) 100 mg PO DAILY [facility] Last Admin: 11/27/16 09:18 Dose: 100 mg Rosuvastatin Calcium (Crestor -) 10 mg PO HS [facility] Last Admin: 11/27/16 21:46 Dose: 10 mg Constitutional: Yes: No Distress, Obese Eyes: Yes: Conjunctiva Clear, EOM Intact HENT: Yes: Atraumatic, Pharyngeal Erythema Neck: Yes: Supple, Trachea Midline Cardiovascular: Yes: Regular Rate and Rhythm Respiratory: Yes: Cough, Diminished, On Nasal O2, Rhonchi, NO Wheezes heard today. No: Accessory Muscle Use, Stridor, Tachypnea ...Inspection: Yes: WNL ...Clubbing: No Gastrointestinal: Yes: Normal Bowel Sounds, Soft Renal/: Yes: WNL Musculoskeletal: Yes: WNL Extremities: Yes: WNL Edema: Yes Edema: LLE: Trace, RLE: Trace Peripheral Pulses WNL: Yes Integumentary: Yes: WNL Neurological: Yes: WNL, Alert, Oriented ...Motor Strength: WNL Psychiatric: Yes: WNL, Alert, Oriented Problem List - Problems (1) COPD exacerbation Code(s): J44.1 - CHRONIC OBSTRUCTIVE PULMONARY DISEASE W (ACUTE) EXACERBATION (2) Asthma exacerbation Code(s): J45.901 - UNSPECIFIED ASTHMA WITH (ACUTE) EXACERBATION (3) Hypertension Code(s): I10 - ESSENTIAL (PRIMARY) HYPERTENSION (4) Hyperlipidemia Code(s): E78.5 - HYPERLIPIDEMIA, UNSPECIFIED (5) Obesity Code(s): E66.9 - OBESITY, UNSPECIFIED (6) Pulmonary vascular congestion Code(s): R09.89 - OTH SYMPTOMS AND SIGNS INVOLVING THE CIRC AND RESP SYSTEMS Assessment/Plan Change to Prednisone 30 BID and taper over the next week to 10 days Check O2 saturation Pre and Post ambulation No smoking counseled PFTs once stable I have a high suspicion for Sleep Apnea -> needs formal workup after discharge D/C meds Symbicort 160/4.5 : 2 inhalations BID Albuterol nebulizers Q4 PRN No ABX needed There is no Pulmonary contraindication for D/C Dr Teresa Problem List - Problems (1) COPD exacerbation Code(s): J44.1 - CHRONIC OBSTRUCTIVE PULMONARY DISEASE W (ACUTE) EXACERBATION (2) Asthma exacerbation Code(s): J45.901 - UNSPECIFIED ASTHMA WITH (ACUTE) EXACERBATION (3) Hypertension Code(s): I10 - ESSENTIAL (PRIMARY) HYPERTENSION (4) Hyperlipidemia Code(s): E78.5 - HYPERLIPIDEMIA, UNSPECIFIED (5) Obesity Code(s): E66.9 - OBESITY, UNSPECIFIED (6) Pulmonary vascular congestion Code(s): R09.89 - OTH SYMPTOMS AND SIGNS INVOLVING THE CIRC AND RESP SYSTEMS
[2016-11-28] MEDS: PREGABALIN 50 MG CAPSULE PO SCH (09:50)
[2016-11-28] MEDS: ASPIRIN/DIPYRIDAMOLE 25 MG/200 MG CAPSULE (FP) PO SCH (09:50)
[2016-11-28] MEDS: amLODIPine BESYLATE 5 MG TABLET (FP) PO SCH (09:50)
[2016-11-28] MEDS: methylPREDNISolone NA SUCC 40 MG/1 ML VIAL IVPB SCH (09:51)
[2016-11-28] MEDS: BUDESONIDE/FORMETEROL FUMARATE 160/4.5 mcg INHALER IH SCH (09:51)
[2016-11-28] MEDS: HEPARIN NA (PORCINE) 5,000 UNITS/ML 1ML VIAL SQ SCH (09:51)
--- NOTE | 2016-11-28 11:06 | PN ---
Progress Note, Physician History of Present Illness: seen and examined today in nad. no overnight events. no new complaints. states she is feeling better. still has mild tightness when taking deep breaths and mild cough but overall significantly better. - Current Medication List Current Medications: Active Medications Acetaminophen (Tylenol -) 325 mg PO Q6H PRN PRN Reason: PAIN Albuterol Sulfate (Ventolin 0.083% Nebulizer Soln -) 1 amp NEB TIDR [facility] Last Admin: 11/28/16 06:10 Dose: 1 amp Albuterol/Ipratropium (Duoneb -) 1 amp NEB Q6H PRN PRN Reason: SHORTNESS OF BREATH Last Admin: 11/24/16 10:00 Dose: 1 amp Amlodipine Besylate (Norvasc -) 5 mg PO DAILY [facility] Last Admin: 11/28/16 09:50 Dose: 5 mg Budesonide/Formoterol Fumarate (Symbicort 160/4.5mcg -) 2 puff IH BID [facility] Last Admin: 11/28/16 09:51 Dose: 2 puff Dipyridamole/Aspirin (Aggrenox -) 1 combo PO BID [facility] Last Admin: 11/28/16 09:50 Dose: 1 combo Heparin Sodium (Porcine) (Heparin -) 5,000 unit SQ BID [facility] Last Admin: 11/28/16 09:51 Dose: Not Given Methylprednisolone Sodium Succinate (Solu-Medrol -) 40 mg IVPB BID [facility] Last Admin: 11/28/16 09:51 Dose: 40 mg Pregabalin (Lyrica -) 100 mg PO DAILY [facility] Last Admin: 11/28/16 09:50 Dose: 100 mg Rosuvastatin Calcium (Crestor -) 10 mg PO HS [facility] Last Admin: 11/27/16 21:46 Dose: 10 mg - Objective Vital Signs: Vital Signs Temperature 98.4 F 11/28/16 09:00 Pulse Rate 69 11/28/16 09:00 Respiratory Rate 18 11/28/16 09:00 Blood Pressure 103/56 11/28/16 09:00 O2 Sat by Pulse Oximetry (%) 96 11/27/16 20:52 Constitutional: Yes: Well Nourished, No Distress, Calm Eyes: Yes: WNL, Conjunctiva Clear, EOM Intact, PERRL HENT: Yes: WNL, Atraumatic, Normocephalic Neck: Yes: WNL, Supple, Trachea Midline Cardiovascular: Yes: WNL, Regular Rate and Rhythm, S1, S2. No: Bradycardia, Tachycardia, Pulse Irregular, Bruit, JVD, Gallop, Murmur, Rub, S3, S4, Varicosities Respiratory: Yes: Regular, Cough, Other (decreased AE throughout, prolonged expiratory phase). No: Rales, Rhonchi, SOB, Wheezes Gastrointestinal: Yes: WNL, Normal Bowel Sounds, Soft. No: Distention, Tenderness Musculoskeletal: Yes: WNL Extremities: Yes: WNL Edema: No Peripheral Pulses WNL: Yes Peripheral Pulses: Left Doralis Pedis: 2+, Right Dorsalis Pedis: 2+ Integumentary: Yes: WNL Neurological: Yes: WNL, Alert, Oriented, Cran Nerves II-XII Intact ...Motor Strength: WNL Psychiatric: Yes: WNL, Alert, Oriented Labs: CBC, BMP 11/24/16 12:00 11/24/16 12:00 - ....Imaging Chest X-ray: Report Reviewed, Image Reviewed EKG: Report Reviewed, Image Reviewed Other: Report Reviewed, Image Reviewed Assessment/Plan 51 year old woman with a history of a bio-MVR for endocarditis, prior CVA, known moderate LV systolic dysfunction, Asthma/COPD, continued smoking, admitted with sob and wheezing, acute exacerbation of COPD. SOB-primarily AE COPD in setting of continued smoking -improved significantly with tx of AE COPD -smoking cessation essential -steroids as per Pulm -echo showed normal LV sytolic function, moderate pulm HTN, normal function bio- MVR -euvolemic, does not require diuresis -resume home Losartan 25mg daily as her LV function normalized from moderately reduced on past echo after tx with Losartan -as she already received amlodipine this am will plan to resume Losartan tomorrow and can hold amlodipine going forward to avoid hypotension -not on bblocker due to COPD and evidence of conduction disease on EKG -pt is acceptable for discharge home from a cardiac standpoint with a plan for close outpatient follow up
[2016-11-28 15:06] VITALS: BP 107/63; PULSE 73
[2016-11-29] MEDS ORDERED: LOSARTAN POTASSIUM 25 MG TABLET PO SCH (10:00)
== END 2016-11-28 17:03 | disposition home or self-care (01) | DRG 191 ==
LOC: JER 21:31 → JERBED 11-24 01:39 → J7W 11-24 05:07
PROVIDERS: ADMIT Internal Medicine; ATTEND Internal Medicine
DX: J44.1 Chronic obstructive pulmonary disease with (acute) exacerbation (principal); J45.901 Unspecified asthma with (acute) exacerbation; I10 Essential (primary) hypertension; E78.5 Hyperlipidemia, unspecified; E66.9 Obesity, unspecified; Z68.34 Body mass index [BMI] 34.0-34.9, adult; Z86.73 Personal history of transient ischemic attack (TIA), and cerebral infarction without residual deficits; F17.210 Nicotine dependence, cigarettes, uncomplicated
CPT/HCPCS: 36415; 71010-TC; 71020-TC; 80053; 82550; 82553; 83880; 84484; 85025; 87040; 93306-TC; 94640; 94761; 99284-25; J1644

== ENCOUNTER → 2018-02-22 | Emergency (ER) | payer MEDICARE, OTHER ==
[2018-02-22 20:56] VITALS: BP 124/55; PULSE 79; TEMP 98.4; BMI 34.0
--- NOTE | 2018-02-22 22:45 | PDOC ---
History of Present Illness - General Chief Complaint: Pain Stated Complaint: HAND INJURY Time Seen by Provider: 02/22/18 22:45 Past History - Past Medical History Allergies/Adverse Reactions: Allergies Allergy/AdvReac Type Severity Reaction Status Date / Time No Known Allergies Allergy Verified 11/23/16 21:38 Home Medications: Ambulatory Orders Albuterol Sulfate [Proair Hfa -] 1 - 2 inh PO HS 12/15/14 Amlodipine Besylate [Norvasc -] 5 mg PO PRN PRN 12/15/14 Oxycodone HCl/Acetaminophen [Percocet 5-325 mg Tablet] 1 tab PO Q6H PRN Pregabalin [Lyrica -] 100 mg PO DAILY 12/15/14 Rosuvastatin Calcium [Crestor] 10 mg PO DAILY 12/15/14 Aspirin/Dipyridamole [Aggrenox -] 1 combo PO BID #0 01/02/15 Albuterol 0.083% Nebulizer Krystina [Ventolin 0.083% Nebulizer Soln -] 1 neb NEB Q6H #120 vial 08/07/16 Budesonide/Formeterol Fumarate [SYMBICORT 160/4.5mcg -] 1 inh PO BID #1 cannister 08/07/16 Albuterol 0.083% Nebulizer Krystina [Ventolin 0.083% Nebulizer Soln -] 1 amp NEB TIDR #1 amp 11/28/16 Albuterol Sulfate Inhaler - [Ventolin HFA Inhaler -] 1 - 2 inh PO QID #1 inhaler 11/28/16 Budesonide/Formeterol Fumarate [SYMBICORT 160/4.5mcg -] 2 puff IH BID #1 inhaler 11/28/16 Losartan Potassium [Cozaar -] 25 mg PO DAILY #30 tablet 11/28/16 predniSONE [Deltasone -] 30 mg PO BID #20 tablet 11/28/16 Anemia: Yes Asthma: Yes Cancer: No Cardiac Disorders: Yes CVA: Yes (2007) COPD: No CHF: No DVT: No Dementia: No Diabetes: No GI Disorders: No Disorders: No HTN: Yes Hypercholesterolemia: Yes Liver Disease: No Seizures: No Thyroid Disease: No - Surgical History Abdominal Surgery: No Appendectomy: No Cardiac Surgery: Yes (mitral valve replacement) Cholecystectomy: No Lung Surgery: No Neurologic Surgery: No Orthopedic Surgery: No - Suicide/Smoking/Psychosocial Hx Smoking History: Current every day smoker Have you smoked in the past 12 months: Yes Number of Cigarettes Smoked Daily: 10 Information on smoking cessation initiated: Yes 'Breaking Loose' booklet given: 02/22/18 Hx Alcohol Use: No Drug/Substance Use Hx: No Substance Use Type: None, Alcohol Hx Substance Use Treatment: No *Physical Exam - Vital Signs Last Vital Signs Temp Pulse Resp BP Pulse Ox 98.4 F 79 20 124/55 100 02/22/18 20:51 02/22/18 20:51 02/22/18 20:51 02/22/18 20:51 02/22/18 20:51 Medical Decision Making - Medical Decision Making Pt placed in vertical holding from waiting room. I went back to vertical to see pt shortly after being placed in vertical (<5 minutes) and pt had eloped. Confirmed elopement with waiting room security. 02/22/18 22:55 *DC/Admit/Observation/Transfer Diagnosis at time of Disposition: Patient left before evaluation by physician - Discharge Dispostion Disposition: LEFT BEFORE [facility] Decision to Admit order: No - Referrals Referrals: Percy Layne MD [Primary Care Provider] - - Patient Instructions - Post Discharge Activity
== END | disposition left against medical advice (07) ==
LOC: JER 20:36
DX: Z53.21 Procedure and treatment not carried out due to patient leaving prior to being seen by health care provider (principal)
CPT/HCPCS: 99281-25

== ENCOUNTER 2018-02-23 03:48 | Emergency (ER) | payer MEDICARE, OTHER ==
--- NOTE | 2018-02-23 04:09 | PDOC ---
Attending Attestation - HPI HPI: 02/23/18 05:36 The patient is a 52 year old female with past medical history of CVA (2007), mitral valve replacement and Hypercholesterolemia presents to the emergency department with wrist pain. The patient reports she suffered a fall on secondary to L. leg weakness, which resulted in the patient injuring her R. wrist. Denies syncope or LOC. Denies vertigo or dizziness. Denies numbness, tingling or loss of sensation. Allergies: NKDA Social history: None reported Surgical history: mitral valve replacement PCP: Percy Layne MD - Physicial Exam PE: 02/23/18 05:40 GENERAL: Awake, alert, and fully oriented, in no acute distress EXTREMITIES:(+) Deformity of the distal wrist, pain with supination and pronation. Good pulse. No skin abrasion, laceration or swelling of the arm. Rest of the extremity: Normal range of motion, no edema. No clubbing or cyanosis. No cords, erythema, or tenderness SKIN: Warm, Dry, normal turgor, no rashes or lesions noted. - Medical Decision Making 02/23/18 05:40 Documentation prepared by Susan Ruano, acting as medical reception specialist for Ashley Roberts MD. <Susan Ruano - Last Filed: 02/23/18 05:36> - Resident Resident Name: Newton Salcido - Medical Decision Making 02/23/18 05:50 Pt was placed in a sugartong spint for the distal radial fracture that occurred on ( 3 days back) Pt will follow with Ortho for casting. She was placed in a sling for comfort. She understands that she can remove it to prevent frozen shoulder. <Ashley Roberts - Last Filed: 02/23/18 05:51>
[2018-02-23 04:20] VITALS: BP 155/95; PULSE 81; TEMP 98; BMI 38.5
--- NOTE | 2018-02-23 04:36 | PDOC ---
History of Present Illness - General Chief Complaint: Pain Stated Complaint: WRIST PAIN Time Seen by Provider: 02/23/18 04:06 History Source: Patient Exam Limitations: No Limitations - History of Present Illness Initial Comments: 02/23/18 04:22 Patient is a 52F with a history of a stroke in 2005 with a small left sided deficit and valve replacement coming in today complaining of a mechanical fall resulting in right wrist pain on . Patient endorses associated decreased office clin asst strength. Denies prodromal symptoms before the fall, chest pain, shortness of breath, head trauma and LOC. Denies fevers, chills, nausea, vomiting. Past History - Past Medical History Allergies/Adverse Reactions: Allergies Allergy/AdvReac Type Severity Reaction Status Date / Time No Known Allergies Allergy Verified 02/23/18 04:20 Home Medications: Ambulatory Orders Albuterol Sulfate [Proair Hfa -] 1 - 2 inh PO HS 12/15/14 Amlodipine Besylate [Norvasc -] 5 mg PO PRN PRN 12/15/14 Oxycodone HCl/Acetaminophen [Percocet 5-325 mg Tablet] 1 tab PO Q6H PRN Pregabalin [Lyrica -] 100 mg PO DAILY 12/15/14 Rosuvastatin Calcium [Crestor] 10 mg PO DAILY 12/15/14 Aspirin/Dipyridamole [Aggrenox -] 1 combo PO BID #0 01/02/15 Albuterol 0.083% Nebulizer Krystina [Ventolin 0.083% Nebulizer Soln -] 1 neb NEB Q6H #120 vial 08/07/16 Budesonide/Formeterol Fumarate [SYMBICORT 160/4.5mcg -] 1 inh PO BID #1 cannister 08/07/16 Albuterol 0.083% Nebulizer Krystina [Ventolin 0.083% Nebulizer Soln -] 1 amp NEB TIDR #1 amp 11/28/16 Albuterol Sulfate Inhaler - [Ventolin HFA Inhaler -] 1 - 2 inh PO QID #1 inhaler 11/28/16 Budesonide/Formeterol Fumarate [SYMBICORT 160/4.5mcg -] 2 puff IH BID #1 inhaler 11/28/16 Losartan Potassium [Cozaar -] 25 mg PO DAILY #30 tablet 11/28/16 predniSONE [Deltasone -] 30 mg PO BID #20 tablet 11/28/16 Anemia: Yes Asthma: Yes Cancer: No Cardiac Disorders: Yes CVA: Yes (2007) COPD: No CHF: No DVT: No Dementia: No Diabetes: No GI Disorders: No Disorders: No HTN: Yes Hypercholesterolemia: Yes Liver Disease: No Seizures: No Thyroid Disease: No - Surgical History Abdominal Surgery: No Appendectomy: No Cardiac Surgery: Yes (mitral valve replacement) Cholecystectomy: No Lung Surgery: No Neurologic Surgery: No Orthopedic Surgery: No - Suicide/Smoking/Psychosocial Hx Smoking History: Never smoked Have you smoked in the past 12 months: No Number of Cigarettes Smoked Daily: 10 Information on smoking cessation initiated: No 'Breaking Loose' booklet given: 02/22/18 Hx Alcohol Use: No Drug/Substance Use Hx: No Substance Use Type: None, Alcohol Hx Substance Use Treatment: No Review of Systems - Review of Systems Comments:: 02/23/18 04:24 GENERAL/CONSTITUTIONAL: No fever or chills. No weakness. HEAD, EYES, EARS, NOSE AND THROAT: No change in vision. No sore throat. CARDIOVASCULAR: No chest pain or shortness of breath RESPIRATORY: No cough, wheezing, or hemoptysis. GASTROINTESTINAL: No nausea, vomiting, diarrhea or constipation. GENITOURINARY: No dysuria, frequency, or change in urination. MUSCULOSKELETAL: No joint or muscle swelling or pain. No neck or back pain. SKIN: No rash NEUROLOGIC: No headache, vertigo, loss of consciousness, or change in strength/ sensation. ENDOCRINE: No increased thirst. No abnormal weight change HEMATOLOGIC/LYMPHATIC: No anemia, easy bleeding, or history of blood clots. ALLERGIC/IMMUNOLOGIC: No hives or skin allergy. *Physical Exam - Vital Signs Last Vital Signs Temp Pulse Resp BP Pulse Ox 98 F 81 18 155/95 99 02/23/18 04:00 02/23/18 04:00 02/23/18 04:00 02/23/18 04:00 02/23/18 04:00 - Physical Exam Comments: 02/23/18 04:24 GENERAL: Awake, alert, and fully oriented, in no acute distress R Wrist: Neurovascularly intact. +snuffbox tenderness, +tenderness with axial loading HEAD: No signs of trauma, normocephalic, atraumatic EYES: PERRLA, EOMI, sclera anicteric, conjunctiva clear ENT: Auricles normal inspection, hearing grossly normal, nares patent, oropharynx clear without exudates. Moist mucosa NECK: Normal ROM, supple, no lymphadenopathy, JVD, or masses LUNGS: No distress, speaks full sentences, clear to auscultation bilaterally HEART: Regular rate and rhythm, normal S1 and S2, no murmurs, rubs or gallops, peripheral pulses normal and equal bilaterally. ABDOMEN: Soft, nontender, normoactive bowel sounds. No guarding, no rebound. No masses EXTREMITIES: Normal inspection, Normal range of motion, no edema. No clubbing or cyanosis. NEUROLOGICAL: Cranial nerves II through XII grossly intact. Normal speech, no focal sensorimotor deficits SKIN: Warm, Dry, normal turgor, no rashes or lesions noted. ED Treatment Course - RADIOLOGY Radiology Studies Ordered: Category Date Time Status ELBOW-RIGHT [RAD] Stat Radiology 02/23/18 04:06 Ordered WRIST W/HAND-RIGHT* [RAD] Stat Radiology 02/23/18 04:06 Ordered Medical Decision Making - Medical Decision Making 02/23/18 04:36 52F here with wrist pain. Do not suspect syncope. Vital signs normal and stable. Will treat with percocet. Will evaluate with x-ray, splint. 02/23/18 05:05 X-ray shows distal radius fracture. Patient placed in splint, given sling for extra support. Will discharge with instructions to follow up with ortho this morning. *DC/Admit/Observation/Transfer Diagnosis at time of Disposition: Wrist fracture, right - Discharge Dispostion Disposition: HOME Condition at time of disposition: Good Decision to Admit order: No - Referrals Referrals: Percy Layne MD [Primary Care Provider] - Gurwinder Le MD [Staff Physician] - - Patient Instructions Printed Discharge Instructions: Wrist Fracture Additional Instructions: Please follow up with ortho this morning. Please return if you pain increases. Please return if you have any new, worsening, or concerning symptoms. - Post Discharge Activity
== END 2018-02-23 05:15 | disposition home or self-care (01) ==
LOC: JER 03:48
PROC: 2W3CX1Z Immobilization of Right Lower Arm using Splint (ICD-10-PCS; principal; 2018-02-23)
DX: S52.591A Other fractures of lower end of right radius, initial encounter for closed fracture (principal); W18.39XA Other fall on same level, initial encounter; Y93.89 Activity, other specified; Y92.89 Other specified places as the place of occurrence of the external cause; Y99.8 Other external cause status; I10 Essential (primary) hypertension; E78.00 Pure hypercholesterolemia, unspecified; I69.854 Hemiplegia and hemiparesis following other cerebrovascular disease affecting left non-dominant side; Z95.2 Presence of prosthetic heart valve
CPT/HCPCS: 29125; 73070-TC-RT-FY; 73110-TC-RT-FY; 73130-TC-RT-FY; 99281-25

== ENCOUNTER 2019-07-30 00:24 | Emergency (ER) | payer MEDICARE, OTHER ==
[2019-07-30 00:38] VITALS: TEMP 98; BMI 34.9
--- NOTE | 2019-07-30 01:34 | PDOC ---
Attending Attestation - Resident Resident Name: Tommie Pace - ED Attending Attestation I have performed the following: I have examined & evaluated the patient, The case was reviewed & discussed with the resident, I agree w/resident's findings & plan, Exceptions are as noted
[2019-07-30] MEDS ORDERED: ACETAMINOPHEN 325 MG TABLET (FP) PO ONE (02:05)
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
[2019-07-30] MEDS ORDERED: BACITRACIN 0.9 GM PACKET ONE (02:28)
[2019-07-30] MEDS ORDERED: BACITRACIN 15 GM TUBE TOPICAL OINTMENT ONE (02:30)
[2019-07-30] MEDS ORDERED: ACETAMINOPHEN 325 MG TABLET (FP) ONE (02:35)
[2019-07-30 03:03] VITALS: BP 103/69; PULSE 87
== END 2019-07-30 03:20 | disposition home or self-care (01) ==
LOC: JER 00:24
PROC: 2W2MX4Z Dressing of Left Lower Extremity using Bandage (ICD-10-PCS; principal; 2019-07-30)
DX: T24.212A Burn of second degree of left thigh, initial encounter (principal); T21.12XA Burn of first degree of abdominal wall, initial encounter; T31.0 Burns involving less than 10% of body surface; X11.0XXA Contact with hot water in bath or tub, initial encounter; Y93.E1 Activity, personal bathing and showering; Y92.031 Bathroom in apartment as the place of occurrence of the external cause; Y99.8 Other external cause status; I10 Essential (primary) hypertension; E78.00 Pure hypercholesterolemia, unspecified; Z95.2 Presence of prosthetic heart valve; I69.854 Hemiplegia and hemiparesis following other cerebrovascular disease affecting left non-dominant side; J45.909 Unspecified asthma, uncomplicated
CPT/HCPCS: 16020; 99282-25

== ENCOUNTER 2022-03-02 15:28 | Inpatient (IN) | payer MEDICARE, OTHER ==
[2022-03-02 15:37] VITALS: BMI 29.6
[2022-03-02] MEDS ORDERED: methylPREDNISolone NA SUCC 125 MG/2 ML VIAL IVPUSH ONE (16:33)
[2022-03-02] MEDS ORDERED: ALBUTEROL SO4 2.5/IPRATROPIUM 0.5 INH SOL 3 ML VIAL.NEB. NEB ONE (16:49)
[2022-03-02] MEDS ORDERED: methylPREDNISolone NA SUCC 125 MG/2 ML VIAL ONE (16:49)
[2022-03-02] MEDS: ALBUTEROL SO4 2.5/IPRATROPIUM 0.5 INH SOL 3 ML VIAL.NEB. NEB SCH (17:14)
[2022-03-02 17:22] LABS: BASO % 0.7 % (0-2.0); EOS % 0.3 % (0-4.5); HEMATOCRIT 39.7 % (32.4-45.2); HEMOGLOBIN 13.2 GM/dL (10.7-15.3); LYMPH % 20.5 % (8-40); MCH 28.2 pg (25.7-33.7); MCHC 33.1 g/dl (32.0-36.0); MEAN CELL VOLUME 85.1 fl (80-96); MEAN PLT VOLUME 8.5 fl (7.5-11.1); MONO % 12.7 % (3.8-10.2); NEUT % 65.8 % (42.8-82.8); PLATELET COUNT 267 10^3/uL (134-434); RBC 4.66 M/mm3 (3.60-5.2); RDW 14.9 % (11.6-15.6); WHITE BLOOD COUNT 11.1 K/mm3 (4.0-10.0)
[2022-03-02 17:43] LABS: CALCIUM 9.4 mg/dL (8.5-10.1)
[2022-03-02 17:44] LABS: BLOOD UREA NITROGEN 20.1 mg/dL (7-18)
[2022-03-02 17:47] LABS: CREATININE 1.1 mg/dL (0.55-1.3)
[2022-03-02 17:48] LABS: BILIRUBIN,TOTAL 0.9 mg/dL (0.2-1); TOT PROT 7.5 g/dl (6.4-8.2)
[2022-03-02] MEDS ORDERED: NALOXONE HCL 0.4 MG/ML VIAL ONE (18:23)
[2022-03-02] MEDS ORDERED: ACETAMINOPHEN 1000 MG/100 ML BAG IVPB ONE (19:01)
[2022-03-02] MEDS ORDERED: LACTATED RINGERS SOLUTION 1000 ML INFUS.BAG IV ONE (19:43)
[2022-03-02] MEDS ORDERED: ACETAMINOPHEN INJECTION 100 ML IVPB ONE (20:01)
[2022-03-02 20:36] LABS: EPI CELLS 25 /uL (0-25.1); HYALINE CASTS 9 /uL (0-3.1); PH,URINE 5.5 (5.0-8.0); URINE APPEARANCE CLOUDY; URINE BACTERIA 86 /uL (0-1359); URINE BILIRUBIN 1+ (NEGATIVE); URINE COLOR DK YELLOW; URINE GLUCOSE (UA) NEGATIVE (NEGATIVE); URINE KETONE TRACE (NEGATIVE); URINE LEUK ESTERASE TRACE (NEGATIVE); URINE NITRITE NEGATIVE (NEGATIVE); URINE PROTEIN 4+ (NEGATIVE); URINE WBC 14 /uL (0-25.8)
[2022-03-02 21:17] LABS: N-TERMINAL BNP 4900.5 pg/ml (5-125)
[2022-03-02 21:25] LABS: VENOUS BASE EXCESS -0.8 mmol/L (-2-2); VENOUS PCO2 44.4 mmHg (38-52); VENOUS PH 7.364 (7.310-7.410)
[2022-03-02 21:35] LABS: URINE RBC 28.5 /uL (0-23.9)
[2022-03-03] MEDS ORDERED: amLODIPine BESYLATE 5 MG TABLET (FP) PO SCH (01:45)
[2022-03-03] MEDS ORDERED: FUROSEMIDE 40 MG/4 ML INJECTABLE VIAL IVPUSH ONE (02:02)
[2022-03-03] MEDS ORDERED: FUROSEMIDE 20 MG TABLET (FP) PO ONE (02:44)
[2022-03-03] MEDS ORDERED: FUROSEMIDE 20 MG TABLET (FP) ONE (02:53)
[2022-03-03 06:55] LABS: HEMATOCRIT 39.7 % (32.4-45.2); HEMOGLOBIN 12.9 GM/dL (10.7-15.3); MCH 28.4 pg (25.7-33.7); MCHC 32.5 g/dl (32.0-36.0); MEAN CELL VOLUME 87.4 fl (80-96); MEAN PLT VOLUME 9.1 fl (7.5-11.1); PLATELET COUNT 262 10^3/uL (134-434); RBC 4.54 M/mm3 (3.60-5.2); RDW 15.1 % (11.6-15.6); WHITE BLOOD COUNT 9.7 K/mm3 (4.0-10.0)
[2022-03-03 07:17] LABS: CALCIUM 9.2 mg/dL (8.5-10.1)
[2022-03-03 07:18] LABS: BLOOD UREA NITROGEN 30.3 mg/dL (7-18)
[2022-03-03 07:21] LABS: CREATININE 1.2 mg/dL (0.55-1.3)
[2022-03-03 07:23] LABS: BILIRUBIN,TOTAL 0.8 mg/dL (0.2-1); TOT PROT 7.7 g/dl (6.4-8.2)
[2022-03-03] MEDS ORDERED: ALBUTEROL SO4 2.5/IPRATROPIUM 0.5 INH SOL 3 ML VIAL.NEB. NEB ONE ×4 (07:54→21:15)
[2022-03-03] MEDS: ALBUTEROL SO4 2.5/IPRATROPIUM 0.5 INH SOL 3 ML VIAL.NEB. NEB SCH ×4 (08:01→21:18)
[2022-03-03 09:05] LABS: ANISOCYTOSIS 0; HELMET CELLS 0; HOWELL-JOLLY BODIES 0; MACROCYTOSIS 0; OVALOCYTE 0; ROULEAU 0; SICKELED CELLS 0; TARGET CELLS 0; TEAR DROP CELLS 0; TOXIC GRANULATION 0
[2022-03-03] MEDS: HEPARIN NA (PORCINE) 5,000 UNITS/ML 1ML VIAL SQ SCH ×2 (10:15→22:15)
[2022-03-03] MEDS: PREGABALIN 100 MG CAPSULE PO SCH (10:15)
[2022-03-03] MEDS: CEFTRIAXONE 1 GM in DEXTROSE 5%-WATER - 50 ML IVPB SCH (10:15)
[2022-03-03] MEDS: LOSARTAN POTASSIUM 25 MG TABLET PO SCH (10:15)
[2022-03-03] MEDS: ASPIRIN/DIPYRIDAMOLE 25 MG/200 MG CAPSULE PO SCH ×2 (10:15→22:15)
[2022-03-03] MEDS: methylPREDNISolone NA SUCC 40 MG/1 ML VIAL IVPUSH SCH ×2 (11:45→18:23)
[2022-03-03] MEDS ORDERED: ASPIRIN/DIPYRIDAMOLE 25 MG/200 MG CAPSULE ONE ×2 (12:23→22:00)
[2022-03-03] MEDS ORDERED: LOSARTAN POTASSIUM 50 MG TABLET ONE (12:23)
[2022-03-03] MEDS ORDERED: CEFTRIAXONE 1 GM/50 ML BAG ONE (12:24)
[2022-03-03] MEDS ORDERED: HEPARIN NA (PORCINE) 5,000 UNITS/ML 1ML VIAL ONE ×2 (12:24→22:00)
[2022-03-03] MEDS ORDERED: methylPREDNISolone NA SUCC 40 MG/1 ML VIAL ONE ×2 (12:24→18:21)
[2022-03-03] MEDS ORDERED: PREGABALIN 100 MG CAPSULE ONE (12:24)
[2022-03-03] MEDS: BUDESONIDE/FORMETEROL FUMARATE 160/4.5 mcg INHALER IH SCH ×2 (12:49→22:15)
[2022-03-03] MEDS: ROSUVASTATIN CA 10 MG TABLET PO SCH (22:15)
[2022-03-04] MEDS ORDERED: methylPREDNISolone NA SUCC 40 MG/1 ML VIAL ONE ×2 (02:04→08:26)
[2022-03-04] MEDS: methylPREDNISolone NA SUCC 40 MG/1 ML VIAL IVPUSH SCH ×3 (02:11→18:43)
[2022-03-04] MEDS ORDERED: LORazepam 2 MG TABLET PO ONE (03:11)
[2022-03-04] MEDS ORDERED: LORazepam 1 MG TABLET ONE (03:16)
[2022-03-04 07:51] LABS: CHOLESTEROL 167 mg/dL (50-200); TRIGLYCERIDES 103 mg/dL (0-150)
[2022-03-04 07:53] LABS: HDL CHOLESTEROL 42 mg/dL (40-60); LDL CHOLESTEROL (ONLY SJRH) 105 mg/dL (5-100)
[2022-03-04] MEDS ORDERED: PREGABALIN 100 MG CAPSULE ONE (08:25)
[2022-03-04] MEDS ORDERED: LOSARTAN POTASSIUM 50 MG TABLET ONE (08:25)
[2022-03-04] MEDS ORDERED: ASPIRIN/DIPYRIDAMOLE 25 MG/200 MG CAPSULE ONE (08:25)
[2022-03-04] MEDS ORDERED: ALBUTEROL SO4 2.5/IPRATROPIUM 0.5 INH SOL 3 ML VIAL.NEB. NEB ONE (08:25)
[2022-03-04] MEDS ORDERED: CEFTRIAXONE 1 GM/50 ML BAG ONE (08:26)
[2022-03-04] MEDS ORDERED: HEPARIN NA (PORCINE) 5,000 UNITS/ML 1ML VIAL ONE (08:26)
[2022-03-04] MEDS: LOSARTAN POTASSIUM 25 MG TABLET PO SCH (09:41)
[2022-03-04] MEDS: ALBUTEROL SO4 2.5/IPRATROPIUM 0.5 INH SOL 3 ML VIAL.NEB. NEB SCH ×4 (09:41→19:20)
[2022-03-04] MEDS: CEFTRIAXONE 1 GM in DEXTROSE 5%-WATER - 50 ML IVPB SCH (09:41)
[2022-03-04] MEDS: PREGABALIN 100 MG CAPSULE PO SCH (09:41)
[2022-03-04] MEDS: ASPIRIN/DIPYRIDAMOLE 25 MG/200 MG CAPSULE PO SCH ×2 (09:41→22:54)
[2022-03-04] MEDS: HEPARIN NA (PORCINE) 5,000 UNITS/ML 1ML VIAL SQ SCH ×2 (09:41→22:54)
[2022-03-04] MEDS: BUDESONIDE/FORMETEROL FUMARATE 160/4.5 mcg INHALER IH SCH ×2 (09:42→22:55)
[2022-03-04] MEDS: FUROSEMIDE 40 MG/4 ML INJECTABLE VIAL IVPUSH SCH (11:10)
[2022-03-04] MEDS: ROSUVASTATIN CA 10 MG TABLET PO SCH (22:54)
[2022-03-05] MEDS: methylPREDNISolone NA SUCC 40 MG/1 ML VIAL IVPUSH SCH (01:31)
[2022-03-05 08:43] LABS: HEMATOCRIT 39.3 % (32.4-45.2); HEMOGLOBIN 12.7 GM/dL (10.7-15.3); MCH 28.2 pg (25.7-33.7); MCHC 32.4 g/dl (32.0-36.0); MEAN PLT VOLUME 8.9 fl (7.5-11.1); PLATELET COUNT 300 10^3/uL (134-434); RBC 4.51 M/mm3 (3.60-5.2); RDW 15.1 % (11.6-15.6); WHITE BLOOD COUNT 14.8 K/mm3 (4.0-10.0)
[2022-03-05] MEDS: ALBUTEROL SO4 2.5/IPRATROPIUM 0.5 INH SOL 3 ML VIAL.NEB. NEB SCH ×4 (08:43→20:41)
[2022-03-05 09:49] LABS: ANISOCYTOSIS 0; MACROCYTOSIS 0
[2022-03-05] MEDS: LOSARTAN POTASSIUM 25 MG TABLET PO SCH (09:57)
[2022-03-05] MEDS: PREGABALIN 100 MG CAPSULE PO SCH (09:57)
[2022-03-05] MEDS: HEPARIN NA (PORCINE) 5,000 UNITS/ML 1ML VIAL SQ SCH ×2 (09:57→22:13)
[2022-03-05] MEDS: ASPIRIN/DIPYRIDAMOLE 25 MG/200 MG CAPSULE PO SCH ×2 (09:57→22:13)
[2022-03-05] MEDS: CEFTRIAXONE 1 GM in DEXTROSE 5%-WATER - 50 ML IVPB SCH (09:57)
[2022-03-05] MEDS: FUROSEMIDE 40 MG/4 ML INJECTABLE VIAL IVPUSH SCH (09:57)
[2022-03-05] MEDS: BUDESONIDE/FORMETEROL FUMARATE 160/4.5 mcg INHALER IH SCH ×2 (09:57→22:14)
[2022-03-05 15:19] LABS: MEAN CELL VOLUME 87.1 fl (80-96)
[2022-03-05 22:13] LABS: ALBUMIN 3.3 g/dl (3.4-5.0); BILIRUBIN,TOTAL 0.2 mg/dL (0.2-1); CALCIUM 9.5 mg/dL (8.5-10.1); CREATININE 1.7 mg/dL (0.55-1.3); TOT PROT 8.2 g/dl (6.4-8.2)
[2022-03-05] MEDS: ROSUVASTATIN CA 10 MG TABLET PO SCH (22:13)
[2022-03-06] MEDS: ALBUTEROL SO4 2.5/IPRATROPIUM 0.5 INH SOL 3 ML VIAL.NEB. NEB SCH ×3 (07:30→15:20)
[2022-03-06 09:20] VITALS: RESP 18
[2022-03-06] MEDS: PREGABALIN 100 MG CAPSULE PO SCH (09:20)
[2022-03-06] MEDS: LOSARTAN POTASSIUM 25 MG TABLET PO SCH (09:20)
[2022-03-06] MEDS: HEPARIN NA (PORCINE) 5,000 UNITS/ML 1ML VIAL SQ SCH (09:20)
[2022-03-06] MEDS: ASPIRIN/DIPYRIDAMOLE 25 MG/200 MG CAPSULE PO SCH (09:20)
[2022-03-06] MEDS: FUROSEMIDE 40 MG/4 ML INJECTABLE VIAL IVPUSH SCH (09:21)
[2022-03-06] MEDS: BUDESONIDE/FORMETEROL FUMARATE 160/4.5 mcg INHALER IH SCH (09:28)
[2022-03-06] MEDS: CEFTRIAXONE 1 GM in DEXTROSE 5%-WATER - 50 ML IVPB SCH (09:29)
[2022-03-06 13:56] LABS: BLOOD UREA NITROGEN 51.4 mg/dL (7-18); CALCIUM 9.8 mg/dL (8.5-10.1)
[2022-03-06 13:58] LABS: ALBUMIN 3.3 g/dl (3.4-5.0)
[2022-03-06 14:02] LABS: BILIRUBIN,TOTAL 0.3 mg/dL (0.2-1); TOT PROT 7.8 g/dl (6.4-8.2)
[2022-03-06 14:03] LABS: CREATININE 1.2 mg/dL (0.55-1.3)
[2022-03-06 14:55] LABS: BASO % 0.3 % (0-2.0); HEMATOCRIT 42.7 % (32.4-45.2); HEMOGLOBIN 13.6 GM/dL (10.7-15.3); LYMPH % 17.6 % (8-40); MCH 28.1 pg (25.7-33.7); MCHC 31.9 g/dl (32.0-36.0); MEAN PLT VOLUME 9.3 fl (7.5-11.1); MONO % 8.5 % (3.8-10.2); NEUT % 73.6 % (42.8-82.8); PLATELET COUNT 293 10^3/uL (134-434); RBC 4.85 M/mm3 (3.60-5.2); RDW 15.3 % (11.6-15.6); WHITE BLOOD COUNT 12.7 K/mm3 (4.0-10.0)
[2022-03-06 15:16] VITALS: BP 118/63; PULSE 87; TEMP 98.1
== END 2022-03-06 20:25 | disposition short-term general hospital (02) | DRG 291 ==
LOC: JER 15:28 → JERBED 03-03 01:01 → J4W 03-04 15:31
PROVIDERS: ADMIT Internal Medicine; ATTEND Internal Medicine
DX: I11.0 Hypertensive heart disease with heart failure (principal); I50.23 Acute on chronic systolic (congestive) heart failure; I24.9 Acute ischemic heart disease, unspecified; J44.1 Chronic obstructive pulmonary disease with (acute) exacerbation; J45.901 Unspecified asthma with (acute) exacerbation; N17.9 Acute kidney failure, unspecified; I05.0 Rheumatic mitral stenosis; E78.5 Hyperlipidemia, unspecified; I27.20 Pulmonary hypertension, unspecified; Z95.2 Presence of prosthetic heart valve; Z86.73 Personal history of transient ischemic attack (TIA), and cerebral infarction without residual deficits
CPT/HCPCS: 0241U-QW; 36415; 71045-TC-FY; 74176-TC; 76775-TC; 80053; 80061; 81003; 82550; 82803; 83605; 83880; 84484; 85025; 87086; 93005; 93010; 93306-TC; 93970-TC; 94640; 99285-25; C9803-CS; J1644; U0003; U0005

== ENCOUNTER 2022-03-21 00:08 | Inpatient (IN) | payer MEDICARE, OTHER ==
[2022-03-21] MEDS ORDERED: ACETAMINOPHEN 1000 MG/100 ML BAG IVPB ONE (00:44)
[2022-03-21] MEDS ORDERED: LORazepam 2 MG/ML SDV VIAL IM ONE (01:32)
[2022-03-21] MEDS ORDERED: ACETAMINOPHEN INJECTION 100 ML IVPB ONE (02:25)
[2022-03-21 02:38] LABS: INR 2.58 (0.83-1.09)
[2022-03-21 02:41] LABS: ACTIVATED PTT 46.8 SECONDS (25.2-36.5)
[2022-03-21 03:00] LABS: CALCIUM 9.3 mg/dL (8.5-10.1)
[2022-03-21 03:01] LABS: ALBUMIN 3.7 g/dl (3.4-5.0)
[2022-03-21 03:04] LABS: CREATININE 1.2 mg/dL (0.55-1.3)
[2022-03-21 03:05] LABS: TOT PROT 7.7 g/dl (6.4-8.2)
[2022-03-21 03:06] LABS: BILIRUBIN,TOTAL 0.6 mg/dL (0.2-1)
[2022-03-21 03:09] LABS: N-TERMINAL BNP 2690.4 pg/ml (5-125)
[2022-03-21 04:48] LABS: BASO % 0.9 % (0-2.0); EOS % 0.2 % (0-4.5); HEMATOCRIT 32.2 % (32.4-45.2); HEMOGLOBIN 10.6 GM/dL (10.7-15.3); LYMPH % 9.8 % (8-40); MCH 28.8 pg (25.7-33.7); MCHC 33.1 g/dl (32.0-36.0); MEAN CELL VOLUME 86.9 fl (80-96); MEAN PLT VOLUME 7.9 fl (7.5-11.1); MONO % 3.1 % (3.8-10.2); PLATELET COUNT 235 10^3/uL (134-434); RDW 15.1 % (11.6-15.6); WHITE BLOOD COUNT 8.9 K/mm3 (4.0-10.0)
[2022-03-21] MEDS ORDERED: ASPIRIN/DIPYRIDAMOLE 25 MG/200 MG CAPSULE PO SCH (14:00)
[2022-03-21] MEDS ORDERED: LOSARTAN POTASSIUM 25 MG TABLET PO SCH (14:00)
[2022-03-21] MEDS ORDERED: PREGABALIN 100 MG CAPSULE PO SCH (14:00)
[2022-03-21] MEDS ORDERED: ACETAMINOPHEN 1000 MG/100 ML BAG IVPB PRN (14:03)
[2022-03-21] MEDS ORDERED: FUROSEMIDE 20 MG TABLET (FP) ONE (16:21)
[2022-03-21] MEDS ORDERED: PANTOPRAZOLE 40 MG TABLET PO ONE (16:21)
[2022-03-21] MEDS ORDERED: WARFARIN NA 5 MG TABLET ONE (17:57)
[2022-03-21] MEDS: BUDESONIDE/FORMETEROL FUMARATE 160/4.5 mcg INHALER IH SCH ×2 (18:07→22:31)
[2022-03-21] MEDS: WARFARIN NA 5 MG TABLET PO SCH (18:07)
[2022-03-21] MEDS: PANTOPRAZOLE 40 MG TABLET PO SCH (18:07)
[2022-03-21] MEDS: FUROSEMIDE 20 MG TABLET (FP) PO SCH (18:07)
[2022-03-21] MEDS ORDERED: ROSUVASTATIN CA 10 MG TABLET PO SCH (22:00)
[2022-03-21] MEDS ORDERED: HEPARIN NA (PORCINE) 5,000 UNITS/ML 1ML VIAL SQ SCH (22:00)
[2022-03-21] MEDS: METOPROLOL TARTRATE 25 MG TABLET (FP) PO SCH (22:30)
[2022-03-21] MEDS: ATORVASTATIN CA 40 MG TABLET (FP) PO SCH (22:30)
[2022-03-21] MEDS: ACETAMINOPHEN 325 MG TABLET (FP) PO PRN (22:30)
[2022-03-22 07:35] LABS: INR 3.04 (0.83-1.09); PROTHROMBIN TIME (PATIENT) 35.3 SEC (9.7-13.0)
[2022-03-22 07:37] LABS: BASO % 0.6 % (0-2.0); EOS % 1.2 % (0-4.5); HEMATOCRIT 32.8 % (32.4-45.2); HEMOGLOBIN 10.6 GM/dL (10.7-15.3); LYMPH % 40.3 % (8-40); MCHC 32.2 g/dl (32.0-36.0); MEAN CELL VOLUME 86.7 fl (80-96); MEAN PLT VOLUME 8.1 fl (7.5-11.1); MONO % 9.6 % (3.8-10.2); NEUT % 48.3 % (42.8-82.8); PLATELET COUNT 285 10^3/uL (134-434); RBC 3.78 M/mm3 (3.60-5.2); RDW 15.1 % (11.6-15.6); WHITE BLOOD COUNT 5.7 K/mm3 (4.0-10.0)
[2022-03-22 07:51] LABS: CALCIUM 9.2 mg/dL (8.5-10.1)
[2022-03-22 07:52] LABS: ALBUMIN 3.5 g/dl (3.4-5.0); BLOOD UREA NITROGEN 14.6 mg/dL (7-18)
[2022-03-22 07:55] LABS: CREATININE 0.9 mg/dL (0.55-1.3)
[2022-03-22 07:57] LABS: TOT PROT 7.2 g/dl (6.4-8.2)
[2022-03-22 07:59] LABS: BILIRUBIN,TOTAL 0.6 mg/dL (0.2-1)
[2022-03-22] MEDS: FUROSEMIDE 20 MG TABLET (FP) PO SCH (10:23)
[2022-03-22] MEDS: PANTOPRAZOLE 40 MG TABLET PO SCH (10:23)
[2022-03-22] MEDS: METOPROLOL TARTRATE 25 MG TABLET (FP) PO SCH ×2 (10:23→21:19)
[2022-03-22] MEDS: BUDESONIDE/FORMETEROL FUMARATE 160/4.5 mcg INHALER IH SCH ×2 (10:24→22:23)
[2022-03-22] MEDS: ACETAMINOPHEN 325 MG TABLET (FP) PO PRN ×2 (11:21→21:20)
[2022-03-22 15:30] VITALS: BMI 26.3
[2022-03-22] MEDS: WARFARIN NA 5 MG TABLET PO SCH (17:34)
[2022-03-22] MEDS: ATORVASTATIN CA 40 MG TABLET (FP) PO SCH (21:19)
[2022-03-23] MEDS: ACETAMINOPHEN 325 MG TABLET (FP) PO PRN ×3 (06:09→21:17)
[2022-03-23 07:36] LABS: BASO % 0.5 % (0-2.0); HEMATOCRIT 33.7 % (32.4-45.2); HEMOGLOBIN 11.2 GM/dL (10.7-15.3); MCH 28.7 pg (25.7-33.7); MCHC 33.2 g/dl (32.0-36.0); MEAN CELL VOLUME 86.4 fl (80-96); MEAN PLT VOLUME 7.8 fl (7.5-11.1); MONO % 11.8 % (3.8-10.2); NEUT % 43.7 % (42.8-82.8); PLATELET COUNT 313 10^3/uL (134-434); RDW 15.2 % (11.6-15.6); WHITE BLOOD COUNT 5.3 K/mm3 (4.0-10.0)
[2022-03-23 07:41] LABS: INR 2.98 (0.83-1.09); PROTHROMBIN TIME (PATIENT) 34.7 SEC (9.7-13.0)
[2022-03-23 07:59] LABS: ALBUMIN 3.4 g/dl (3.4-5.0); BLOOD UREA NITROGEN 11.8 mg/dL (7-18); CALCIUM 9.2 mg/dL (8.5-10.1)
[2022-03-23 08:02] LABS: CREATININE 0.7 mg/dL (0.55-1.3)
[2022-03-23 08:04] LABS: BILIRUBIN,TOTAL 0.5 mg/dL (0.2-1); TOT PROT 7.1 g/dl (6.4-8.2)
[2022-03-23] MEDS: PANTOPRAZOLE 40 MG TABLET PO SCH (09:54)
[2022-03-23] MEDS: FUROSEMIDE 20 MG TABLET (FP) PO SCH (09:54)
[2022-03-23] MEDS: METOPROLOL TARTRATE 25 MG TABLET (FP) PO SCH ×2 (09:54→21:17)
[2022-03-23] MEDS: BUDESONIDE/FORMETEROL FUMARATE 160/4.5 mcg INHALER IH SCH ×2 (09:54→21:23)
[2022-03-23] MEDS: WARFARIN NA 5 MG TABLET PO SCH (17:44)
[2022-03-23] MEDS: ATORVASTATIN CA 40 MG TABLET (FP) PO SCH (21:17)
[2022-03-24] MEDS: ACETAMINOPHEN 325 MG TABLET (FP) PO PRN ×3 (06:01→21:27)
[2022-03-24 07:07] LABS: INR 2.41 (0.83-1.09)
[2022-03-24] MEDS: METOPROLOL TARTRATE 25 MG TABLET (FP) PO SCH ×2 (09:47→21:29)
[2022-03-24] MEDS: PANTOPRAZOLE 40 MG TABLET PO SCH (09:47)
[2022-03-24] MEDS: FUROSEMIDE 20 MG TABLET (FP) PO SCH (09:47)
[2022-03-24] MEDS: BUDESONIDE/FORMETEROL FUMARATE 160/4.5 mcg INHALER IH SCH ×2 (09:48→21:30)
[2022-03-24] MEDS: WARFARIN NA 3 MG TABLET PO SCH (17:39)
[2022-03-24] MEDS: ATORVASTATIN CA 40 MG TABLET (FP) PO SCH (21:29)
[2022-03-24] MEDS ORDERED: morphine SULFATE 4 MG/ML VIAL IVPUSH ONE (21:37)
[2022-03-25] MEDS ORDERED: morphine SULFATE 4 MG/ML VIAL ONE (01:43)
[2022-03-25] MEDS: ACETAMINOPHEN 325 MG TABLET (FP) PO PRN ×3 (07:36→21:27)
[2022-03-25] MEDS: FUROSEMIDE 20 MG TABLET (FP) PO SCH (10:12)
[2022-03-25] MEDS: PANTOPRAZOLE 40 MG TABLET PO SCH (10:12)
[2022-03-25] MEDS: METOPROLOL TARTRATE 25 MG TABLET (FP) PO SCH ×2 (10:12→21:27)
[2022-03-25] MEDS: BUDESONIDE/FORMETEROL FUMARATE 160/4.5 mcg INHALER IH SCH ×2 (10:13→23:23)
[2022-03-25 11:03] LABS: INR 2.11 (0.83-1.09); PROTHROMBIN TIME (PATIENT) 24.4 SEC (9.7-13.0)
[2022-03-25] MEDS: LIDOCAINE 5% TOPICAL PATCH TP SCH (11:18)
[2022-03-25] MEDS: WARFARIN NA 3 MG TABLET PO SCH (17:18)
[2022-03-25] MEDS: WARFARIN NA 7.5 MG TABLET PO SCH (17:35)
[2022-03-25] MEDS: LIDOCAINE PATCH REMOVAL MC SCH (21:08)
[2022-03-25] MEDS: ATORVASTATIN CA 40 MG TABLET (FP) PO SCH (21:27)
[2022-03-26] MEDS: BUDESONIDE/FORMETEROL FUMARATE 160/4.5 mcg INHALER IH SCH ×3 (01:30→21:15)
[2022-03-26] MEDS ORDERED: KETOROLAC TROMETHAMINE 15 MG/ML VIAL IVPUSH ONE (02:00)
[2022-03-26] MEDS: ACETAMINOPHEN 325 MG TABLET (FP) PO PRN ×3 (07:58→20:23)
[2022-03-26] MEDS: PANTOPRAZOLE 40 MG TABLET PO SCH (09:22)
[2022-03-26] MEDS: LIDOCAINE 5% TOPICAL PATCH TP SCH (09:22)
[2022-03-26] MEDS: FUROSEMIDE 20 MG TABLET (FP) PO SCH (09:22)
[2022-03-26] MEDS: METOPROLOL TARTRATE 25 MG TABLET (FP) PO SCH ×2 (09:22→21:15)
[2022-03-26 09:36] LABS: BASO % 0.9 % (0-2.0); EOS % 0.7 % (0-4.5); HEMATOCRIT 36.4 % (32.4-45.2); HEMOGLOBIN 12.1 GM/dL (10.7-15.3); LYMPH % 30.2 % (8-40); MCH 28.6 pg (25.7-33.7); MCHC 33.1 g/dl (32.0-36.0); MEAN CELL VOLUME 86.3 fl (80-96); MEAN PLT VOLUME 7.4 fl (7.5-11.1); MONO % 8.3 % (3.8-10.2); NEUT % 59.9 % (42.8-82.8); PLATELET COUNT 390 10^3/uL (134-434); RBC 4.21 M/mm3 (3.60-5.2); RDW 15.8 % (11.6-15.6); WHITE BLOOD COUNT 6.1 K/mm3 (4.0-10.0)
[2022-03-26 09:38] LABS: INR 2.24 (0.83-1.09)
[2022-03-26 10:07] LABS: ALBUMIN 3.9 g/dl (3.4-5.0); CALCIUM 10.1 mg/dL (8.5-10.1)
[2022-03-26 10:11] LABS: CREATININE 1.2 mg/dL (0.55-1.3)
[2022-03-26 10:12] LABS: BILIRUBIN,TOTAL 0.5 mg/dL (0.2-1); TOT PROT 7.8 g/dl (6.4-8.2)
[2022-03-26] MEDS: WARFARIN NA 7.5 MG TABLET PO SCH (17:19)
[2022-03-26] MEDS: ATORVASTATIN CA 40 MG TABLET (FP) PO SCH (21:14)
[2022-03-26] MEDS: LIDOCAINE PATCH REMOVAL MC SCH (21:20)
[2022-03-27] MEDS: ACETAMINOPHEN 325 MG TABLET (FP) PO PRN ×3 (03:28→20:04)
[2022-03-27] MEDS: LIDOCAINE 5% TOPICAL PATCH TP SCH (10:21)
[2022-03-27] MEDS: FUROSEMIDE 20 MG TABLET (FP) PO SCH (10:21)
[2022-03-27] MEDS: METOPROLOL TARTRATE 25 MG TABLET (FP) PO SCH ×2 (10:21→22:47)
[2022-03-27] MEDS: PANTOPRAZOLE 40 MG TABLET PO SCH (10:21)
[2022-03-27] MEDS: BUDESONIDE/FORMETEROL FUMARATE 160/4.5 mcg INHALER IH SCH ×2 (10:22→22:46)
[2022-03-27 12:12] LABS: INR 2.35 (0.83-1.09); PROTHROMBIN TIME (PATIENT) 27.3 SEC (9.7-13.0)
[2022-03-27] MEDS: WARFARIN NA 7.5 MG TABLET PO SCH (17:13)
[2022-03-27] MEDS: LIDOCAINE PATCH REMOVAL MC SCH (22:44)
[2022-03-27] MEDS: ATORVASTATIN CA 40 MG TABLET (FP) PO SCH (22:47)
[2022-03-28 10:06] LABS: INR 2.49 (0.83-1.09); PROTHROMBIN TIME (PATIENT) 28.9 SEC (9.7-13.0)
[2022-03-28] MEDS ORDERED: KETOROLAC TROMETHAMINE 10 MG TABLET PO ONE (10:57)
[2022-03-28] MEDS: FUROSEMIDE 20 MG TABLET (FP) PO SCH (11:06)
[2022-03-28] MEDS: LIDOCAINE 5% TOPICAL PATCH TP SCH (11:07)
[2022-03-28] MEDS: PANTOPRAZOLE 40 MG TABLET PO SCH (11:07)
[2022-03-28] MEDS: METOPROLOL TARTRATE 25 MG TABLET (FP) PO SCH (11:07)
[2022-03-28] MEDS: BUDESONIDE/FORMETEROL FUMARATE 160/4.5 mcg INHALER IH SCH (11:07)
[2022-03-28] MEDS: ACETAMINOPHEN 325 MG TABLET (FP) PO PRN (13:44)
[2022-03-28 14:42] VITALS: BP 110/79; PULSE 77; RESP 18; TEMP 98.3
== END 2022-03-28 15:44 | disposition home or self-care (01) | DRG 556 ==
LOC: JER 00:08 → UNDOADMOB 00:29 → JERBED 00:29 → INTOOBSV 00:29 → JER 05:05 → J4W 22:14 → JERBED 22:14 → J4W 03-22 11:08 → JERBED 03-22 11:08 → J5S 03-25 18:57 → OBSVTOIN 03-26 13:14
PROVIDERS: ADMIT Internal Medicine; ATTEND Internal Medicine
DX: M79.601 Pain in right arm (principal); I50.22 Chronic systolic (congestive) heart failure; J45.909 Unspecified asthma, uncomplicated; E78.5 Hyperlipidemia, unspecified; I11.0 Hypertensive heart disease with heart failure; D35.00 Benign neoplasm of unspecified adrenal gland; R59.0 Localized enlarged lymph nodes; I44.1 Atrioventricular block, second degree; R00.1 Bradycardia, unspecified; Z95.2 Presence of prosthetic heart valve
CPT/HCPCS: 0241U-QW; 36415; 70450-TC; 71045-TC-FY; 71250-TC; 71275-TC; 72125-TC; 73030-TC-RT-FY; 73221-TC-RT; 74181-TC; 80053; 82550; 83605; 83880; 84484; 85025; 85379; 85610; 85730; 93005; 93010; 93970-TC; 93971; 97116-GP; 97162-GP; 99285-25; G0378

== ENCOUNTER → 2022-04-30 | Emergency (ER) | payer MEDICARE, OTHER ==
[2022-04-30 16:49] VITALS: RESP 18; BMI 24.7
[2022-04-30 19:03] LABS: BASO % 0.8 % (0-2.0); EOS % 1.4 % (0-4.5); HEMOGLOBIN 12.9 GM/dL (10.7-15.3); LYMPH % 37.3 % (8-40); MCH 27.8 pg (25.7-33.7); MCHC 31.6 g/dl (32.0-36.0); MEAN CELL VOLUME 88.1 fl (80-96); MEAN PLT VOLUME 8.8 fl (7.5-11.1); MONO % 9.3 % (3.8-10.2); NEUT % 51.2 % (42.8-82.8); PLATELET COUNT 286 10^3/uL (134-434); RBC 4.66 M/mm3 (3.60-5.2); RDW 16.7 % (11.6-15.6); WHITE BLOOD COUNT 6.4 K/mm3 (4.0-10.0)
[2022-04-30 19:21] LABS: ACTIVATED PTT 48.9 SECONDS (25.2-36.5); INR 2.48 (0.83-1.09); PROTHROMBIN TIME (PATIENT) 28.8 SEC (9.7-13.0)
[2022-04-30 19:26] LABS: BLOOD UREA NITROGEN 22.3 mg/dL (7-18); CALCIUM 10.2 mg/dL (8.5-10.1)
[2022-04-30 19:27] LABS: ALBUMIN 4.3 g/dl (3.4-5.0)
[2022-04-30 19:29] LABS: CREATININE 1.7 mg/dL (0.55-1.3)
[2022-04-30 19:31] LABS: BILIRUBIN,TOTAL 0.4 mg/dL (0.2-1); TOT PROT 8.7 g/dl (6.4-8.2)
[2022-04-30 19:59] VITALS: BP 111/67; PULSE 78
[2022-04-30 22:38] VITALS: TEMP 98.6
== END | disposition short-term general hospital (02) ==
LOC: JER 16:44
DX: M79.89 Other specified soft tissue disorders (principal)
CPT/HCPCS: 36415; 80053; 85025; 85610; 85730; 99285-25; C9803-CS; U0003; U0005

== ENCOUNTER 2024-04-15 11:05 | Emergency (ER) | payer MEDICARE, OTHER ==
[2024-04-15 11:21] VITALS: BMI 25.4
[2024-04-15 11:44] VITALS: RESP 20
[2024-04-15] MEDS: ALBUTEROL SO4 2.5/IPRATROPIUM 0.5 INH SOL 3 ML VIAL.NEB. NEB SCH (12:11)
[2024-04-15] MEDS ORDERED: ALBUTEROL SO4 2.5/IPRATROPIUM 0.5 INH SOL 3 ML VIAL.NEB. NEB ONE (12:24)
[2024-04-15] MEDS ORDERED: methylPREDNISolone NA SUCC 125 MG/2 ML VIAL ONE (12:59)
[2024-04-15 14:31] VITALS: TEMP 98.4
[2024-04-15 15:19] VITALS: BP 118/77; PULSE 60
[2024-04-15] MEDS ORDERED: predniSONE 20 MG TABLET (UD) ONE (15:22)
[2024-04-15] MEDS ORDERED: AZITHROMYCIN 500 MG TABLET ONE (15:22)
[2024-04-15] MEDS: predniSONE 20 MG TABLET (UD) PO ONE (15:23)
[2024-04-15] MEDS: AZITHROMYCIN 250 MG TABLET PO ONE (15:23)
[2024-04-15] MEDS: methylPREDNISolone NA SUCC 125 MG/2 ML VIAL IVPUSH ONE (15:32)
== END 2024-04-15 15:42 | disposition home or self-care (01) ==
LOC: JER 11:05
PROC: 3E0F7GC Introduction of Other Therapeutic Substance into Respiratory Tract, Via Natural or Artificial Opening (ICD-10-PCS; principal; 2024-04-15)
DX: R06.02 Shortness of breath (principal); R05.9 Cough, unspecified; J45.901 Unspecified asthma with (acute) exacerbation; Z87.891 Personal history of nicotine dependence; Z20.822 Contact with and (suspected) exposure to COVID-19
CPT/HCPCS: 0241U-QW; 71045-TC-FY; 93005; 93010; 94640; 99285-25